=== PATIENT | male | born 1960 | race Caucasian/White ===

== ENCOUNTER 2018-05-17 18:45 | Inpatient (IN) | payer BC ==
[~2018-05-17] VITALS: Ht 167.6 cm; Wt 58.5 kg
[2018-05-17] MEDS ORDERED: SINEMET 25-1001 EAC1 ORAL (18:59)
[2018-05-17 19:10] VITALS: BP 117/67
[2018-05-17] MEDS ORDERED: LORazepam Inj 2mg/ml 1ml IV ONE (19:15)
--- NOTE | 2018-05-17 19:33 | Emergency Room Report ---
History of Present Illness General Chief Complaint: General Complaint Source: Patient Present Illness HPI 58-year-old male, history of some psychiatric disorder, said that he woke up and he believes that someone put formaldehyde in his mouth. He was at home, with a family member. States that his dad 2 weeks ago, they used formaldehyde for his body, he says that he woke up and he smelled formaldehyde on his lips. He says that he does not believe anyone poisoned him, but does not know why it would smelling formaldehyde in his lips. He is currently just complaining of generalized weakness. No chest pain or abdominal pain. Some nausea but no vomiting. No diarrhea. Allergies: Coded Allergies: No Known Allergies (Unverified , 05/17/18) Patient History Past Medical History: see triage record Past Surgical History: none Pertinent Family History: none Reviewed Nursing Documentation: PMH: Agreed; PSxH: Agreed Nursing Documentation-PM Past Medical History: No History, Except For History Of Psychiatric Problem: Yes - anxiety, depression Hx Neurological Problems: Yes Review of Systems All Other Systems: negative except mentioned in HPI Physical Exam Vital Signs Date Time Temp Pulse Resp B/P (MAP) Pulse Ox O2 Delivery O2 Flow Rate FiO2 05/17/18 18:48 98.4 84 16 108/76 100 Room Air 98.4 Sp02 EP Interpretation: reviewed, normal General Appearance: other - Withdrawn middle aged male, very anxious appearing , however he is answering questions appropriately, nontoxic Head: normocephalic, atraumatic Eyes: bilateral eye normal inspection, bilateral eye PERRL, bilateral eye EOMI ENT: normal ENT inspection, normal pharynx, normal voice, moist mucus membranes Neck: normal inspection, full range of motion, supple Respiratory: normal inspection, lungs clear, normal breath sounds, no respiratory distress, no retraction, no wheezing, speaking full sentences, chest symmetrical Cardiovascular #1: normal inspection, regular rate, rhythm, no edema, normal capillary refill Cardiovascular #2: 2+ radial (R), 2+ radial (L) Gastrointestinal: normal inspection, non tender, soft, non-distended, no guarding Genitourinary: no CVA tenderness Musculoskeletal: normal inspection, back normal, normal range of motion, non- tender Neurologic: normal inspection, alert, oriented x3, responsive, motor strength/ tone normal, sensory intact, normal gait, speech normal Psychiatric: normal inspection, judgement/insight normal, memory normal Skin: normal inspection, normal color, no rash, warm/dry, well hydrated, normal turgor Medical Decision Making Diagnostic Impression: Primary Impression: Generalized weakness Additional Impressions: Dehydration Decreased oral intake ER Course 58-year-old male, feeling like he has smoke formaldehyde on his lips, however denies having any formaldehyde or any substance like that in his home. No SI or HI DDX: Possibly anxiety, rule out toxic overdose although there denies any actual history of this Plan: Obtain labs, observation ER course: Patient has remained stable during ED stay. He was very anxious upon arrival, so 2 mg Ativan was given Since then he has been sleeping comfortably Labs on her otherwise unremarkable with the exception of some mild dehydration His mother came, says that he has a history of polina and she read an article where Polina can cause acidosis in the blood, so she gave him baking soda mixed with water this was 24 hours ago labs are showing dehydration Disposition: Patient is to be admitted to Dr Mcclain, med surg Please note that this Emergency Department Report was dictated using [employer] technology software, occasionally this can lead to erroneous entry secondary to interpretation by the dictation equipment Laboratory Tests Test 05/17/18 20:00 05/17/18 20:18 White Blood Count 10.4 K/UL (4.8-10.8) Red Blood Count 3.47 M/UL (4.70-6.10) L Hemoglobin 10.5 G/DL (14.2-18.0) L Hematocrit 31.1 % (42.0-52.0) L Mean Corpuscular Volume 90 FL (80-99) Mean Corpuscular Hemoglobin 30.1 PG (27.0-31.0) Mean Corpuscular Hemoglobin Concent 33.6 G/DL (32.0-36.0) Red Cell Distribution Width 11.5 % (11.6-14.8) L Platelet Count 217 K/UL (150-450) Mean Platelet Volume 5.6 FL (6.5-10.1) L Neutrophils (%) (Auto) 76.1 % (45.0-75.0) H Lymphocytes (%) (Auto) 14.9 % (20.0-45.0) L Monocytes (%) (Auto) 8.2 % (1.0-10.0) Eosinophils (%) (Auto) 0.1 % (0.0-3.0) Basophils (%) (Auto) 0.7 % (0.0-2.0) Sodium Level 141 MMOL/L (136-145) Potassium Level 3.2 MMOL/L (3.5-5.1) L Chloride Level 102 MMOL/L (98-107) Carbon Dioxide Level 35 MMOL/L (21-32) H Anion Gap 4 mmol/L (5-15) L Blood Urea Nitrogen 23 mg/dL (7-18) H Creatinine 0.7 MG/DL (0.55-1.30) Estimate Glomerular Filtration Rate > 60 mL/min (>60) Glucose Level 107 MG/DL (74-106) H Calcium Level 9.0 MG/DL (8.5-10.1) Total Bilirubin 1.3 MG/DL (0.2-1.0) H Direct Bilirubin 0.2 MG/DL (0.0-0.3) Aspartate Amino Transferase (AST) 55 U/L (15-37) H Alanine Aminotransferase (ALT) 11 U/L (12-78) L Alkaline Phosphatase 63 U/L (46-116) Total Creatine Kinase 1130 U/L (26-308) H Total Protein 6.8 G/DL (6.4-8.2) Albumin 3.4 G/DL (3.4-5.0) Globulin 3.4 g/dL Albumin/Globulin Ratio 1.0 (1.0-2.7) Salicylates Level 1.5 ug/mL (2.8-20) L Acetaminophen Level < 2 MCG/ML (10-30) L Serum Alcohol < 3 mg/dL Arterial Blood pH 7.542 (7.350-7.450) Arterial Blood Partial Pressure CO2 36.2 mmHg (35.0-45.0) Arterial Blood Partial Pressure O2 102.9 mmHg (75.0-100.0) H Arterial Blood HCO3 30.4 mmol/L (22.0-26.0) H Arterial Blood Oxygen Saturation 97.4 % (92.0-98.0) Arterial Blood Base Excess 7.5 Bobby Test Positive Last Vital Signs Date Time Temp Pulse Resp B/P (MAP) Pulse Ox O2 Delivery O2 Flow Rate FiO2 05/17/18 19:10 98.4 85 16 117/67 100 Room Air 98.4 Disposition: ADMITTED INPATIENT Condition: Serious Referrals: NOT CHOSEN IPA/,REFERRING (PCP) Nadine Almendarez M.D. May 17, 2018 19:33
[2018-05-17 20:14] VITALS: BP 120/68
[2018-05-17 20:25] LABS: BASOPHILS % (AUTO) 0.7 % (0.0-2.0); EOSINOPHILS % (AUTO) 0.1 % (0.0-3.0); HEMATOCRIT 31.1 % (42.0-52.0); HEMOGLOBIN 10.5 G/DL (14.2-18.0); LYMPHOCYTES % (AUTO) 14.9 % (20.0-45.0); MEAN CORPUSCULAR VOLUME 90 FL (80-99); MONOCYTES % (AUTO) 8.2 % (1.0-10.0); NEUTROPHILS % (AUTO) 76.1 % (45.0-75.0); PLATELET COUNT 217 K/UL (150-450); RED BLOOD COUNT 3.47 M/UL (4.70-6.10); RED CELL DISTRIBUTION WIDTH 11.5 % (11.6-14.8); WHITE BLOOD COUNT 10.4 K/UL (4.8-10.8)
[2018-05-17 20:38] LABS: ANION GAP 4 mmol/L (5-15); BLOOD UREA NITROGEN 23 mg/dL (7-18); CARBON DIOXIDE 35 MMOL/L (21-32); CHLORIDE 102 MMOL/L (98-107); CREATININE 0.7 MG/DL (0.55-1.30); POTASSIUM 3.2 MMOL/L (3.5-5.1); SODIUM 141 MMOL/L (136-145)
[2018-05-17 20:51] LABS: ALANINE AMINOTRANSFERASE 11 U/L (12-78); ALBUMIN 3.4 G/DL (3.4-5.0); ALKALINE PHOSPHATASE 63 U/L (46-116); ASPARTATE AMINO TRANSFERASE 55 U/L (15-37); BILIRUBIN,TOTAL 1.3 MG/DL (0.2-1.0); CREATINE KINASE 1130 U/L (26-308)
[2018-05-17 20:58] LABS: BILIRUBIN,DIRECT 0.2 MG/DL (0.0-0.3)
[2018-05-17 22:45] VITALS: BP 117/71
[2018-05-17] MEDS ORDERED: UNOBMED (23:19)
[2018-05-18] VITALS: BP 96/55
[2018-05-18] MEDS ORDERED: Norco 5mg/325mg tab ORAL PRN (00:15)
[2018-05-18] MEDS: D5 1/2NS w/KCl 20mEq 1,000 ML IV SCH ×2 (00:55→11:05)
[2018-05-18 04:00] VITALS: BP 113/58
[2018-05-18 06:56] LABS: BASOPHILS % (AUTO) 0.7 % (0.0-2.0); EOSINOPHILS % (AUTO) 0.8 % (0.0-3.0); HEMATOCRIT 30.2 % (42.0-52.0); HEMOGLOBIN 10.2 G/DL (14.2-18.0); LYMPHOCYTES % (AUTO) 18.4 % (20.0-45.0); MEAN CORPUSCULAR VOLUME 89 FL (80-99); MONOCYTES % (AUTO) 8.4 % (1.0-10.0); NEUTROPHILS % (AUTO) 71.8 % (45.0-75.0); PLATELET COUNT 186 K/UL (150-450); RED CELL DISTRIBUTION WIDTH 11.5 % (11.6-14.8); WHITE BLOOD COUNT 6.6 K/UL (4.8-10.8)
[2018-05-18 07:00] LABS: APPEARANCE,URINE CLEAR; BILIRUBIN, URINE NEGATIVE (NEGATIVE); COLOR,URINE BROWN; GLUCOSE, URINE (UA) NEGATIVE (NEGATIVE); KETONES,URINE 2+ (NEGATIVE); LEUKOCYTE ESTERASE ,URINE 1+ (NEGATIVE); NITRITE,URINE NEGATIVE (NEGATIVE); PH,URINE 8 (4.5-8.0); PROTEIN,URINE 1+ (NEGATIVE); UROBILINOGEN,URINE NORMAL MG/DL (0.0-1.0)
[2018-05-18 07:38] LABS: ALANINE AMINOTRANSFERASE 23 U/L (12-78); ALBUMIN 2.8 G/DL (3.4-5.0); ALBUMIN/GLOBULIN RATIO 0.9 (1.0-2.7); ALKALINE PHOSPHATASE 56 U/L (46-116); ANION GAP 4 mmol/L (5-15); ASPARTATE AMINO TRANSFERASE 43 U/L (15-37); BILIRUBIN,TOTAL 1.3 MG/DL (0.2-1.0); BLOOD UREA NITROGEN 15 mg/dL (7-18); CALCIUM 8.4 MG/DL (8.5-10.1); CARBON DIOXIDE 32 MMOL/L (21-32); CHLORIDE 106 MMOL/L (98-107); CREATININE 0.7 MG/DL (0.55-1.30); PHOSPHORUS 2.6 MG/DL (2.5-4.9); POTASSIUM 3.2 MMOL/L (3.5-5.1); SODIUM 142 MMOL/L (136-145)
[2018-05-18 07:39] LABS: BILIRUBIN,DIRECT 0.2 MG/DL (0.0-0.3)
[2018-05-18 08:00] VITALS: BP 110/68
[2018-05-18] MEDS: Heparin 5000 units/ml inj SUBQ SCH ×2 (08:07→21:04)
[2018-05-18] MEDS ORDERED: LORazepam 1mg tab ORAL PRN (11:30)
[2018-05-18 12:00] VITALS: BP 111/67
--- NOTE | 2018-05-18 12:38 | Consultation ---
History of Present Illness General Date patient seen: May 18, 2018 Chief Complaint: General Complaint Present Illness HPI 58-year-old male, history of some psychiatric disorder, said that he woke up and he believes that someone put formaldehyde in his mouth. He says that he does not believe anyone poisoned him, but does not know why it would smelling formaldehyde in his lips. He is currently just complaining of generalized weakness. He was mildly dehydrated, and he seemed not be able to take care of himself and need probably placement. Allergies: Coded Allergies: No Known Allergies (Unverified , 05/17/18) Medication History Scheduled Carbidopa/Levodopa 25-100 Mg* (Sinemet 25-100 Mg Tablet*), 1 TAB ORAL THREE TIMES A DAY, (Reported) Miscellaneous Medications Unable to Obtain Medications (Unable To Obtain Meds), (Reported) Patient History Healthcare decision maker Resuscitation status Full Code Advanced Directive on File Past Medical/Surgical History Past Medical/Surgical History: (1) Schizoaffective disorder Review of Systems All Other Systems: negative except mentioned in HPI Physical Exam General Appearance: cachetic Lines, tubes and drains: peripheral Neck: non-tender, normal alignment Respiratory/Chest: chest wall non-tender, normal breath sounds Breasts: no masses Cardiovascular/Chest: normal peripheral pulses Abdomen: normal bowel sounds, hyperactive bowel sounds Extremities: normal range of motion Last 24 Hour Vital Signs Date Time Temp Pulse Resp B/P (MAP) Pulse Ox O2 Delivery O2 Flow Rate FiO2 05/18/18 12:00 97.9 73 18 111/67 (82) 99 97.9 05/18/18 08:00 97.5 79 19 110/68 (82) 98 97.5 05/18/18 08:00 Room Air 05/18/18 04:00 98.9 73 19 113/58 (76) 98 98.9 05/18/18 00:00 98.3 77 19 96/55 (69) 97 98.3 05/17/18 23:22 Room Air 05/17/18 23:11 98.1 82 16 117/71 100 Room Air 98.1 05/17/18 22:45 98.1 82 16 117/71 100 Room Air 98.1 05/17/18 20:14 98.5 80 18 120/68 100 Room Air 98.5 05/17/18 19:10 98.4 85 16 117/67 100 Room Air 98.4 05/17/18 18:48 98.4 84 16 108/76 100 Room Air 98.4 Intake and Output 05/17/18 05/18/18 19:00 07:00 Intake Total 1600 ml Output Total 500 ml Balance 1100 ml Intake IV Total 1600 ml Output Urine Total 500 ml # Voids 1 Laboratory Tests Test 05/17/18 20:00 05/17/18 20:18 05/18/18 05:50 White Blood Count 10.4 K/UL (4.8-10.8) 6.6 K/UL (4.8-10.8) Red Blood Count 3.47 M/UL (4.70-6.10) L 3.40 M/UL (4.70-6.10) L Hemoglobin 10.5 G/DL (14.2-18.0) L 10.2 G/DL (14.2-18.0) L Hematocrit 31.1 % (42.0-52.0) L 30.2 % (42.0-52.0) L Mean Corpuscular Volume 90 FL (80-99) 89 FL (80-99) Mean Corpuscular Hemoglobin 30.1 PG (27.0-31.0) 29.9 PG (27.0-31.0) Mean Corpuscular Hemoglobin Concent 33.6 G/DL (32.0-36.0) 33.7 G/DL (32.0-36.0) Red Cell Distribution Width 11.5 % (11.6-14.8) L 11.5 % (11.6-14.8) L Platelet Count 217 K/UL (150-450) 186 K/UL (150-450) Mean Platelet Volume 5.6 FL (6.5-10.1) L 5.8 FL (6.5-10.1) L Neutrophils (%) (Auto) 76.1 % (45.0-75.0) H 71.8 % (45.0-75.0) Lymphocytes (%) (Auto) 14.9 % (20.0-45.0) L 18.4 % (20.0-45.0) L Monocytes (%) (Auto) 8.2 % (1.0-10.0) 8.4 % (1.0-10.0) Eosinophils (%) (Auto) 0.1 % (0.0-3.0) 0.8 % (0.0-3.0) Basophils (%) (Auto) 0.7 % (0.0-2.0) 0.7 % (0.0-2.0) Sodium Level 141 MMOL/L (136-145) 142 MMOL/L (136-145) Potassium Level 3.2 MMOL/L (3.5-5.1) L 3.2 MMOL/L (3.5-5.1) L Chloride Level 102 MMOL/L (98-107) 106 MMOL/L (98-107) Carbon Dioxide Level 35 MMOL/L (21-32) H 32 MMOL/L (21-32) Anion Gap 4 mmol/L (5-15) L 4 mmol/L (5-15) L Blood Urea Nitrogen 23 mg/dL (7-18) H 15 mg/dL (7-18) Creatinine 0.7 MG/DL (0.55-1.30) 0.7 MG/DL (0.55-1.30) Estimat Glomerular Filtration Rate > 60 mL/min (>60) > 60 mL/min (>60) Glucose Level 107 MG/DL (74-106) H 153 MG/DL (74-106) H Calcium Level 9.0 MG/DL (8.5-10.1) 8.4 MG/DL (8.5-10.1) L Total Bilirubin 1.3 MG/DL (0.2-1.0) H 1.3 MG/DL (0.2-1.0) H Direct Bilirubin 0.2 MG/DL (0.0-0.3) 0.2 MG/DL (0.0-0.3) Aspartate Amino Transf (AST/SGOT) 55 U/L (15-37) H 43 U/L (15-37) H Alanine Aminotransferase (ALT/SGPT) 11 U/L (12-78) L 23 U/L (12-78) Alkaline Phosphatase 63 U/L (46-116) 56 U/L (46-116) Total Creatine Kinase 1130 U/L (26-308) H Total Protein 6.8 G/DL (6.4-8.2) 5.9 G/DL (6.4-8.2) L Albumin 3.4 G/DL (3.4-5.0) 2.8 G/DL (3.4-5.0) L Globulin 3.4 g/dL 3.1 g/dL Albumin/Globulin Ratio 1.0 (1.0-2.7) 0.9 (1.0-2.7) L Salicylates Level 1.5 ug/mL (2.8-20) L Acetaminophen Level < 2 MCG/ML (10-30) L Serum Alcohol < 3 mg/dL Arterial Blood pH 7.542 (7.350-7.450) Arterial Blood Partial Pressure CO2 36.2 mmHg (35.0-45.0) Arterial Blood Partial Pressure O2 102.9 mmHg (75.0-100.0) H Arterial Blood HCO3 30.4 mmol/L (22.0-26.0) H Arterial Blood Oxygen Saturation 97.4 % (92.0-98.0) Arterial Blood Base Excess 7.5 Bobby Test Positive Phosphorus Level 2.6 MG/DL (2.5-4.9) Magnesium Level 2.0 MG/DL (1.8-2.4) Height (Feet): 5 Height (Inches): 6.00 Weight (Pounds): 129 Medications Current Medications Medications (Trade) Dose Ordered Sig/Rakesh Route PRN Reason Start Time Stop Time Status Last Admin Dose Admin Acetaminophen (Tylenol) 650 mg Q6H PRN ORAL Mild Pain/Temp > 100.0 05/18/18 00:15 06/17/18 00:14 Acetaminophen/ Hydrocodone Bitart ([place] 5/325) 1 tab Q6H PRN ORAL MOD-SEV PAIN 4-10 05/18/18 00:15 05/25/18 00:14 Dextrose/ Electrolytes 1,000 ml @ 100 mls/hr Q10H IV 05/18/18 00:15 06/17/18 00:14 05/18/18 11:05 Heparin Sodium (Porcine) (Heparin 5000 units/ml) 5,000 units EVERY 12 HOURS SUBQ 05/18/18 09:00 06/17/18 08:59 05/18/18 08:07 Lorazepam (Ativan) 1 mg Q6H PRN ORAL For Anxiety 05/18/18 11:30 05/25/18 11:29 Ondansetron HCl (Zofran) 4 mg Q4H PRN IVP Nausea & Vomiting 05/18/18 00:15 06/17/18 00:14 Assessment/Plan Problem List: (1) Dehydration ICD Codes: E86.0 - Dehydration SNOMED: 32865469 (2) unable to care for himself (3) Schizoaffective disorder ICD Codes: F25.9 - Schizoaffective disorder, unspecified SNOMED: 91991402 (4) Generalized weakness ICD Codes: R53.1 - Weakness SNOMED: 91214181 Assessment/Plan Iv fluids psych evaluation check electrolytes K supplement pt/ot social service consult Jahaira Chan MD May 18, 2018 12:38
[2018-05-18 16:00] VITALS: BP 121/70
[2018-05-18 20:00] VITALS: BP 113/63
--- NOTE | 2018-05-18 20:04 | History & Physical ---
History and Physical History & Physicial Dictated for Int Med-Dr Mcclain no. [id number]. Mike Shanks MD May 18, 2018 20:04
--- NOTE | 2018-05-18 22:00 | History and Physical Report ---
DATE OF ADMISSION: 05/17/2018 CHIEF COMPLAINT: The patient is a 58-year-old male, who presents with a chief complaint of acute psychosis. HISTORY OF PRESENT ILLNESS: The patient himself is unable to contribute much to the history and physical. The patient is having hallucinations. The patient apparently lives at home with family. The patient states his father 2 weeks ago and they used formaldehyde to preserve his body. The patient states he woke up with formaldehyde on his lips. The patient states that he does not know if of anybody poisoned him or if he just got formaldehyde on his lips. The patient is admitted for acute psychosis. PAST MEDICAL HISTORY: Unknown. PAST SURGICAL HISTORY: Unknown. CURRENT MEDICATIONS: Sinemet 25/100 one tablet p.o. 3 times daily. ALLERGIES: No known drug allergies. SOCIAL HISTORY: The patient lives at home with his family. The patient denies tobacco or alcohol use. REVIEW OF SYSTEMS: Unable to assess secondary to the patient's mental status. PHYSICAL EXAMINATION: VITAL SIGNS: Temperature 98.3, respirations 19, pulse 77, and blood pressure 96/55. GENERAL: The patient is a well-developed and well-nourished male, in no apparent distress. HEENT: Eyes, pupils are equal and responsive to light and accommodation. Extraocular movements are intact. NECK: Supple without lymphadenopathy. CHEST: Lungs are clear to auscultation bilaterally without wheezes or rales. CARDIOVASCULAR: Regular rhythm and rate. S1 and S2 are normal without murmurs, rubs, or gallops. ABDOMEN: Soft, nontender, and nondistended. Positive bowel sounds. No evidence of hepatosplenomegaly. Currently, no rebounding or guarding noted. EXTREMITIES: Negative for clubbing, cyanosis, or edema. RECTAL/GENITAL: Deferred. NEUROLOGIC: Cranial nerves II through XII are grossly intact without focal deficits. Motor strength is 5/5 bilaterally. Deep tendon reflexes are 2+ plantar. LABORATORY STUDIES: WBC 10.4, hemoglobin 10.5, hematocrit 31.1, and platelets 270,000. Sodium 141, potassium 3.2, chloride 102, CO2 35, BUN 23, creatinine 0.7, and glucose 107. Urine toxicology was negative. ASSESSMENT: This is a 58-year-old male. 1. Acute psychosis, not otherwise specified. 2. Parkinson's disease. TREATMENT: 1. Psychosis, not otherwise specified. A Psychiatric consultation has been obtained with Dr. Caldwell. We will follow recommendations of Dr. Caldwell. 2. Parkinson's disease. Continue Sinemet as above this. Mike Shanks M.D. DR: JESSA JOB#: [id number] CC:
[2018-05-19] VITALS: BP 120/72
[2018-05-19 04:00] VITALS: BP 127/75
--- NOTE | 2018-05-19 07:13 | Pulmonology Progress Note ---
Assessment/Plan Assessment/Plan ASSESSMENT Dehydration Schizoaffective disorder Unable to care for himself Anemia Hypokalemia Probably protein calorie malnutrition PLAN OF CARE MS floor IVF Monitor renal parameters, lytes, correct lytes as needed Avoid nephrotoxic PT eval Dietary eval Monitor HH with goal to keep Hgb above 7 Psych eval SS eval case discussed and evaluated by supervising physician Subjective Allergies: Coded Allergies: No Known Allergies (Unverified , 05/17/18) Subjective denies chest pain, SOB reports generalized weakness poor historian Objective Last 24 Hour Vital Signs Date Time Temp Pulse Resp B/P (MAP) Pulse Ox O2 Delivery O2 Flow Rate FiO2 05/19/18 04:00 98.2 80 18 127/75 (92) 99 98.2 05/19/18 00:00 98.2 79 18 120/72 (88) 99 98.2 05/18/18 21:00 Room Air 05/18/18 20:00 97.9 82 113/63 (80) 97.9 05/18/18 16:00 98.0 79 19 121/70 (87) 99 98.0 05/18/18 12:00 97.9 73 18 111/67 (82) 99 97.9 05/18/18 08:00 97.5 79 19 110/68 (82) 98 97.5 05/18/18 08:00 Room Air Intake and Output 05/18/18 05/19/18 19:00 07:00 Intake Total 490 ml Output Total 950 ml Balance -460 ml Intake Oral 490 ml Output Urine Total 950 ml # Voids 2 # Bowel Movements 2 General Appearance: no acute distress HEENT: normocephalic, atraumatic, anicteric, mucous membranes moist Respiratory/Chest: lungs clear, no respiratory distress, no accessory muscle use Cardiovascular: normal rate, regular rhythm, no JVD Abdomen: normal bowel sounds, soft, non tender Genitourinary: normal external genitalia Extremities: no edema, pedal pulses normal Neurologic/Psychiatric: abnormal gait, alert, responsive Musculoskeletal: normal muscle bulk Current Medications Medications (Trade) Dose Ordered Sig/Rakesh Route PRN Reason Start Time Stop Time Status Last Admin Dose Admin Acetaminophen (Tylenol) 650 mg Q6H PRN ORAL Mild Pain/Temp > 100.0 05/18/18 00:15 06/17/18 00:14 Acetaminophen/ Hydrocodone Bitart ([place] 5/325) 1 tab Q6H PRN ORAL MOD-SEV PAIN 4-10 05/18/18 00:15 05/25/18 00:14 Al Hydroxide/Mg Hydroxide (Mylanta) 30 ml Q8HR PRN ORAL Abdominal cramps 05/19/18 02:30 06/18/18 02:29 05/19/18 04:30 Heparin Sodium (Porcine) (Heparin 5000 units/ml) 5,000 units EVERY 12 HOURS SUBQ 05/18/18 09:00 06/17/18 08:59 05/18/18 21:04 Lorazepam (Ativan) 1 mg Q6H PRN ORAL For Anxiety 05/18/18 11:30 05/25/18 11:29 05/18/18 14:10 Ondansetron HCl (Zofran) 4 mg Q4H PRN IVP Nausea & Vomiting 05/18/18 00:15 06/17/18 00:14 Paloma Henry NP May 19, 2018 07:13
[2018-05-19 07:53] LABS: BASOPHILS % (AUTO) 0.8 % (0.0-2.0); EOSINOPHILS % (AUTO) 1.3 % (0.0-3.0); HEMATOCRIT 34.5 % (42.0-52.0); HEMOGLOBIN 11.5 G/DL (14.2-18.0); MEAN CORPUSCULAR VOLUME 88 FL (80-99); MONOCYTES % (AUTO) 11.6 % (1.0-10.0); NEUTROPHILS % (AUTO) 57.2 % (45.0-75.0); PLATELET COUNT 213 K/UL (150-450); RED BLOOD COUNT 3.92 M/UL (4.70-6.10); RED CELL DISTRIBUTION WIDTH 11.3 % (11.6-14.8); WHITE BLOOD COUNT 4.8 K/UL (4.8-10.8)
[2018-05-19 08:00] VITALS: BP 103/67
[2018-05-19 08:25] LABS: ALANINE AMINOTRANSFERASE 14 U/L (12-78); ALBUMIN 3.1 G/DL (3.4-5.0); ALBUMIN/GLOBULIN RATIO 0.9 (1.0-2.7); ALKALINE PHOSPHATASE 59 U/L (46-116); ANION GAP 8 mmol/L (5-15); ASPARTATE AMINO TRANSFERASE 39 U/L (15-37); BILIRUBIN,TOTAL 0.9 MG/DL (0.2-1.0); BLOOD UREA NITROGEN 10 mg/dL (7-18); CALCIUM 8.9 MG/DL (8.5-10.1); CARBON DIOXIDE 29 MMOL/L (21-32); CHLORIDE 104 MMOL/L (98-107); CREATININE 0.6 MG/DL (0.55-1.30); PHOSPHORUS 2.7 MG/DL (2.5-4.9); POTASSIUM 3.6 MMOL/L (3.5-5.1); SODIUM 141 MMOL/L (136-145)
[2018-05-19] MEDS: Heparin 5000 units/ml inj SUBQ SCH (09:02)
[2018-05-19 12:00] VITALS: BP 115/70
[2018-05-19] MEDS ORDERED: QUETIAPINE FUMA50 MG ORAL (20:35)
[2018-05-19] MEDS ORDERED: PANTOPRAZOLE SO40 MG ORAL (20:35)
[2018-05-19] MEDS ORDERED: ENTACAPONE200 MG PO (20:35)
[2018-05-19] MEDS ORDERED: METHOCARBAMOL750 MG ORAL (20:35)
[2018-05-19] MEDS ORDERED: KLONOPIN0.5 MG ORAL (20:35)
[2018-05-19] MEDS ORDERED: DOCUSATE SODIU100 MG ORAL (20:35)
[2018-05-19] MEDS ORDERED: CARVEDILOL6.25 MG ORAL (20:35)
[2018-05-19] MEDS ORDERED: PROAIR HFA8.5 GM INH (20:35)
[2018-05-19] MEDS ORDERED: NORCO 5-325 TA1 EACH ORAL (20:35)
[2018-05-19] MEDS ORDERED: FLUTICASONE PRO16 G1 NASAL (20:35)
[2018-05-19] MEDS ORDERED: FLONASE1 SPRAYS NASAL (20:35)
--- NOTE | 2018-05-19 23:32 | Consultation ---
History of Present Illness General Date patient seen: May 18, 2018 Chief Complaint: General Complaint Present Illness HPI 58-year-old male, who presents with a chief complaint of acute psychosis. the pt has hx of depression and anxiety he was perseverating about his medical condition and was paranoid Allergies: Uncoded Allergies: LEVODOPA, CARBIDOPA (Allergy, Unknown, 05/19/18) Medication History Scheduled Albuterol Sulfate* (Proair Hfa*), 1 PUFF INH THREE TIMES A DAY, (Reported) Carbidopa/Levodopa 25-100 Mg* (Sinemet 25-100 Mg Tablet*), 1 TAB ORAL THREE TIMES A DAY, (Reported) Carvedilol* (Carvedilol*), 6.25 MG ORAL EVERY 12 HOURS, (Reported) Clonazepam* (Klonopin*), 0.5 MG ORAL BID, (Reported) Docusate Sodium* (Docusate Sodium*), 100 MG ORAL TWICE A DAY, (Reported) Entacapone (Entacapone), 200 MG PO DAILY, (Reported) Fluticasone Propionate (Fluticasone Propionate), 1 SPRAY NASAL DAILY, (Reported) Fluticasone Propionate* (Fluticasone Propionate*), 1 SPRAY NASAL DAILY, ( Reported) Pantoprazole* (Pantoprazole*), 40 MG ORAL DAILY, (Reported) Quetiapine Fumarate* (Quetiapine Fumarate*), 50 MG ORAL DAILY, (Reported) Scheduled PRN Hydrocodone Bit/Acetaminophen 5-325* ([place] 5-325*), 1 TAB ORAL Q6H PRN for For Pain, (Reported) Methocarbamol* (Methocarbamol*), 750 MG ORAL THREE TIMES A DAY PRN for For Pain, (Reported) Miscellaneous Medications Unable to Obtain Medications (Unable To Obtain Meds), (Reported) Patient History History Provided By: Patient, Medical Record, PMD Healthcare decision maker Resuscitation status Full Code Advanced Directive on File Review of Systems Psychiatric: Reports: prior hx, anxiety, depressed feelings, emotional problems Physical Exam General Appearance: no apparent distress, alert Last 24 Hour Vital Signs Date Time Temp Pulse Resp B/P (MAP) Pulse Ox O2 Delivery O2 Flow Rate FiO2 05/19/18 12:00 98.2 75 18 115/70 (85) 99 98.2 05/19/18 08:12 Room Air 05/19/18 08:00 99.0 76 18 103/67 (79) 99 99.0 05/19/18 04:00 98.2 80 18 127/75 (92) 99 98.2 05/19/18 00:00 98.2 79 18 120/72 (88) 99 98.2 Intake and Output 05/18/18 05/19/18 19:00 07:00 Intake Total 490 ml Output Total 950 ml Balance -460 ml Intake Oral 490 ml Output Urine Total 950 ml # Voids 2 # Bowel Movements 2 Laboratory Tests Test 05/19/18 07:20 White Blood Count 4.8 K/UL (4.8-10.8) Red Blood Count 3.92 M/UL (4.70-6.10) L Hemoglobin 11.5 G/DL (14.2-18.0) L Hematocrit 34.5 % (42.0-52.0) L Mean Corpuscular Volume 88 FL (80-99) Mean Corpuscular Hemoglobin 29.5 PG (27.0-31.0) Mean Corpuscular Hemoglobin Concent 33.4 G/DL (32.0-36.0) Red Cell Distribution Width 11.3 % (11.6-14.8) L Platelet Count 213 K/UL (150-450) Mean Platelet Volume 5.8 FL (6.5-10.1) L Neutrophils (%) (Auto) 57.2 % (45.0-75.0) Lymphocytes (%) (Auto) 29.0 % (20.0-45.0) Monocytes (%) (Auto) 11.6 % (1.0-10.0) H Eosinophils (%) (Auto) 1.3 % (0.0-3.0) Basophils (%) (Auto) 0.8 % (0.0-2.0) Sodium Level 141 MMOL/L (136-145) Potassium Level 3.6 MMOL/L (3.5-5.1) Chloride Level 104 MMOL/L (98-107) Carbon Dioxide Level 29 MMOL/L (21-32) Anion Gap 8 mmol/L (5-15) Blood Urea Nitrogen 10 mg/dL (7-18) Creatinine 0.6 MG/DL (0.55-1.30) Estimat Glomerular Filtration Rate > 60 mL/min (>60) Glucose Level 100 MG/DL (74-106) Calcium Level 8.9 MG/DL (8.5-10.1) Phosphorus Level 2.7 MG/DL (2.5-4.9) Magnesium Level 2.0 MG/DL (1.8-2.4) Total Bilirubin 0.9 MG/DL (0.2-1.0) Aspartate Amino Transf (AST/SGOT) 39 U/L (15-37) H Alanine Aminotransferase (ALT/SGPT) 14 U/L (12-78) Alkaline Phosphatase 59 U/L (46-116) Total Protein 6.7 G/DL (6.4-8.2) Albumin 3.1 G/DL (3.4-5.0) L Globulin 3.6 g/dL Albumin/Globulin Ratio 0.9 (1.0-2.7) L Height (Feet): 5 Height (Inches): 6.00 Weight (Pounds): 129 Assessment/Plan Assessment/Plan encephalopathy due to [facility] seroquel Ivan Saenz MD May 19, 2018 23:32
[2018-05-20] MEDS ORDERED: METHOCARBAMOL750 M1 PO (19:40)
--- NOTE | 2018-05-22 12:28 | Discharge Summary ---
Discharge Summary Discharge Summary _ DATE OF ADMISSION: 05/16/2018 DATE OF DISCHARGE: 05/19/2018. Patient signed AGAINST MEDICAL ADVICE REASON FOR ADMISSION: 58 years old male with past medical history of hypertension, Parkinson disease, schizoaffective disorder, who lives at home with 80 years old mother, presented to emergency room for evaluation . Patient was acting bizarre , stating that he believes someone placed formaldehyde into his mouth, while he was sleeping.. He smell formaldehyde on his lips upon awakening. He stated , that his father 2 weeks ago, and they use formaldehyde for his body He did not believe that someone wanted to poison him. Patient also complained of generalized weakness. He denied chest pain, shortness of breath, abdominal pain. No diarrhea , no vomiting, some nausea. Vital signs were stable. Laboratory workup revealed no leukocytosis, hemoglobin 10.5, hematocrit 31, potassium 3.2 . ABG was stable on room air. BUN 23 creatinine 0.7. CK 1130 , AST 55 Serum salicylate , , Tylenol and alcohol level were all negative. Patient admitted with diagnoses of dehydration ,generalized weakness ,Parkinson disease, schizoaffective disorder ,unable to care for himself, hypokalemia. CONSULTANTS: pulmonary Dr. Chan psychiatrist [facility] COURSE: Patient admitted to medical surgical floor. Patient started on the IV fluids. Potassium was replaced. Psychiatric evaluation was requested. Patient started to work with physical and occupational therapists. Social service evaluation was requested for home safety evaluation. Sinemet was continued. Renal parameters and electrolytes were closely monitored. Electrolytes corrected as needed, and nephrotoxins were avoided. Dietary evaluation was requested for probable protein calorie malnutrition. Psychiatrist seen and evaluated patient , and diagnosed patient with encephalopathy secondary to general medical condition . Patient was started on Seroquel on as needed basis. DVT prophylaxis provided. Pain management was addressed as needed. Patient decided to sign AGAINST MEDICAL ADVICE. The risks and consequences of signing AGAINST MEDICAL ADVICE were discussed with patient in detail. Patient verbalized understanding, nevertheless signed AMA form and left. FINAL DIAGNOSES: Dehydration Encephalopathy secondary to general medical condition Schizoaffective disorder Parkinson disease Unable to care for himself Probably protein calorie malnutrition Anemia Hypokalemia -resolved Paloma Henry NP May 22, 2018 12:28
--- NOTE | 2018-05-23 16:19 | Cardiology Report ---
APPROVED REPORT EKG Measurement Heart [id number] 132P81 [id number] Normal sinus rhythm Normal ECG
== END 2018-05-19 14:15 | disposition left against medical advice (07) | DRG 640 ==
LOC: EDBD 18:45 → EMR 18:59 → 4E 21:22 → EDBEDREQ 21:43 → 4E 22:50
DX: E86.0 Dehydration (principal); G93.40 Encephalopathy, unspecified; E46 Unspecified protein-calorie malnutrition; F25.9 Schizoaffective disorder, unspecified; G20 Parkinson's disease; D64.9 Anemia, unspecified; E87.6 Hypokalemia; Z88.8 Allergy status to other drugs, medicaments and biological substances
CPT/HCPCS: 36415; 36600; 80053; 80307; 80329; 81003; 82248; 82550; 82803; 82962; 83735; 84100; 85025; 93005; 96361; 96374; 99285

== ENCOUNTER 2018-05-19 18:46 | Inpatient (IN) | payer BC, OTHER ==
[~2018-05-19] VITALS: Ht 177.8 cm; Wt 57.2 kg
[~2018-05-19 18:46] MED LIST: SINEMET 25-1001 EAC1 ORAL; UNOBMED
[2018-05-19 18:47] VITALS: BP 141/80
[2018-05-19] MEDS ORDERED: Sodium Chloride 500ML 500 ML IV ONE (19:02)
[2018-05-19] MEDS ORDERED: LORazepam Inj 2mg/ml 1ml IV ONE (19:15)
--- NOTE | 2018-05-19 19:39 | Emergency Room Report ---
History of Present Illness General Chief Complaint: General Complaint Source: EMS Present Illness HPI 58-year-old male presents ED for evaluation. Patient brought by EMS from home. Patient was having anxiety and call 911. States he is shaking. EMS states that they have responded to this patient multiple times in the past week. History of Parkinson's. Patient was admitted here 2 days ago and left AMA this morning. Upon arrival patient is very anxious. States his sugar is very high. Denies chest pain or shortness of breath. Denies hearing voices. Denies suicidal or homicidal ideation. No other aggravating relieving factors. Denies any other associated symptoms Allergies: Coded Allergies: NO KNOWN ALLERGIES (Verified Allergy, Unknown, 05/19/18) Patient History Past Medical History: psych hx, other - parkinsons Past Surgical History: none Pertinent Family History: none Social History: Denies: smoking, alcohol use, drug use Immunizations: UTD Reviewed Nursing Documentation: PMH: Agreed; PSxH: Agreed Nursing Documentation-PMH Past Medical History: No History, Except For Hx Neurological Problems: Yes Review of Systems All Other Systems: negative except mentioned in HPI Physical Exam Vital Signs Date Time Temp Pulse Resp B/P (MAP) Pulse Ox O2 Delivery O2 Flow Rate FiO2 05/19/18 18:39 99.0 86 20 132/76 97 Room Air 99.0 Sp02 EP Interpretation: reviewed, normal General Appearance: no apparent distress, alert, GCS 15, non-toxic Head: normocephalic, atraumatic Eyes: bilateral eye normal inspection, bilateral eye PERRL ENT: hearing grossly normal, normal pharynx, no angioedema, normal voice Neck: full range of motion, supple/symm/no masses Respiratory: chest non-tender, lungs clear, normal breath sounds, speaking full sentences Cardiovascular #1: regular rate, rhythm, no edema Cardiovascular #2: 2+ carotid (R), 2+ carotid (L), 2+ radial (R), 2+ radial (L) , 2+ dorsalis pedis (R), 2+ dorsalis pedis (L) Gastrointestinal: normal bowel sounds, non tender, soft, non-distended, no guarding, no rebound Rectal: deferred Genitourinary: normal inspection, no CVA tenderness Musculoskeletal: back normal, gait/station normal, normal range of motion, non- tender Neurologic: alert, oriented x3, responsive, motor strength/tone normal, sensory intact, speech normal Psychiatric: no suicidal/homicidal ideation, no delusions, anxious Reflexes: 3+ bicep (R), 3+ bicep (L), 3+ tricep (R), 3+ tricep (L), 3+ knee (R) , 3+ knee (L) Skin: normal color, no rash, warm/dry, well hydrated Lymphatic: no adenopathy Medical Decision Making Diagnostic Impression: Primary Impression: Schizoaffective disorder Qualified Codes: F25.9 - Schizoaffective disorder, unspecified Additional Impression: unable to care for himself ER Course Hospital Course 58-year-old male presenting to ED with anxiety, unable to care for self Differential diagnoses include: UTI, sepsis, dehydration, psychosis, failure to thrive Clinical course Patient placed on stretcher. On gambling monitor. After initial history and physical, I ordered labs, IV fluids, ativan Labs - no leukocytosis, hb/hct stable, electrolytes ok Patient is more calm after Ativan however is unable to provide a accurate story. Patient was admitted here on 05/17. I spoke to the admitting physician who states that patient did leave AMA on 05/19 morning. Called his mother who picked him up. I spoke to the mother over the phone. She did not want to take the patient home but he insisted. She states that she does not believe patient can be safely discharged to home. She agrees to admission patient will be admitted to Dr Mcclain I feel this is a highly complex case requiring extensive working including EKG/ Rhythm strip, Xray/CT/US, Blood/urine lab work, repeat exams while in ED, and administration of strong opiates/narcotics for pain control, admission to hospital or close patient follow up. Diagnosis - schizoaffective disorder, unable to care for self Patient admitted to floor in serious condition Labs Test 05/19/18 19:22 05/20/18 05:20 White Blood Count 8.3 K/UL (4.8-10.8) 6.7 K/UL (4.8-10.8) Red Blood Count 3.82 M/UL (4.70-6.10) 3.85 M/UL (4.70-6.10) Hemoglobin 11.2 G/DL (14.2-18.0) 11.3 G/DL (14.2-18.0) Hematocrit 33.4 % (42.0-52.0) 33.8 % (42.0-52.0) Mean Corpuscular Volume 87 FL (80-99) 88 FL (80-99) Mean Corpuscular Hemoglobin 29.4 PG (27.0-31.0) 29.4 PG (27.0-31.0) Mean Corpuscular Hemoglobin Concent 33.7 G/DL (32.0-36.0) 33.5 G/DL (32.0-36.0) Red Cell Distribution Width 11.3 % (11.6-14.8) 11.3 % (11.6-14.8) Platelet Count 258 K/UL (150-450) 239 K/UL (150-450) Mean Platelet Volume 5.5 FL (6.5-10.1) 5.8 FL (6.5-10.1) Neutrophils (%) (Auto) 71.5 % (45.0-75.0) 64.9 % (45.0-75.0) Lymphocytes (%) (Auto) 16.1 % (20.0-45.0) 21.1 % (20.0-45.0) Monocytes (%) (Auto) 10.7 % (1.0-10.0) 12.2 % (1.0-10.0) Eosinophils (%) (Auto) 0.6 % (0.0-3.0) 1.2 % (0.0-3.0) Basophils (%) (Auto) 1.0 % (0.0-2.0) 0.6 % (0.0-2.0) Sodium Level 138 MMOL/L (136-145) 139 MMOL/L (136-145) Potassium Level 3.8 MMOL/L (3.5-5.1) 3.8 MMOL/L (3.5-5.1) Chloride Level 103 MMOL/L (98-107) 104 MMOL/L (98-107) Carbon Dioxide Level 29 MMOL/L (21-32) 26 MMOL/L (21-32) Anion Gap 6 mmol/L (5-15) 9 mmol/L (5-15) Blood Urea Nitrogen 14 mg/dL (7-18) 17 mg/dL (7-18) Creatinine 0.7 MG/DL (0.55-1.30) 0.6 MG/DL (0.55-1.30) Estimat Glomerular Filtration Rate > 60 mL/min (>60) > 60 mL/min (>60) Glucose Level 166 MG/DL (74-106) 112 MG/DL (74-106) Calcium Level 9.0 MG/DL (8.5-10.1) 9.2 MG/DL (8.5-10.1) Total Bilirubin 0.5 MG/DL (0.2-1.0) 0.5 MG/DL (0.2-1.0) Aspartate Amino Transf (AST/SGOT) 33 U/L (15-37) 28 U/L (15-37) Alanine Aminotransferase (ALT/SGPT) 21 U/L (12-78) 42 U/L (12-78) Alkaline Phosphatase 63 U/L (46-116) 62 U/L (46-116) Total Protein 6.9 G/DL (6.4-8.2) 7.1 G/DL (6.4-8.2) Albumin 3.2 G/DL (3.4-5.0) 3.3 G/DL (3.4-5.0) Globulin 3.7 g/dL 3.8 g/dL Albumin/Globulin Ratio 0.9 (1.0-2.7) 0.9 (1.0-2.7) Salicylates Level 2.4 ug/mL (2.8-20) Urine Opiates Screen Negative (NEGATIVE) Acetaminophen Level < 2 MCG/ML (10-30) Urine Barbiturates Screen Negative (NEGATIVE) Phencyclidine (PCP) Screen Negative (NEGATIVE) Urine Amphetamines Screen Negative (NEGATIVE) Urine Benzodiazepines Screen Negative (NEGATIVE) Urine Cocaine Screen Negative (NEGATIVE) Urine Marijuana (THC) Screen Negative (NEGATIVE) Serum Alcohol < 3 mg/dL Triglycerides Level 41 MG/DL (30-150) Cholesterol Level 109 MG/DL (< 200) LDL Cholesterol 65 mg/dL (<100) HDL Cholesterol 41 MG/DL (40-60) Cholesterol/HDL Ratio 2.7 (3.3-4.4) Thyroid Stimulating Hormone (TSH) 1.066 uiU/mL (0.358-3.740) Last Vital Signs Date Time Temp Pulse Resp B/P (MAP) Pulse Ox O2 Delivery O2 Flow Rate FiO2 05/19/18 18:47 99.4 87 28 141/80 99 Room Air 99.4 Status: improved Disposition: ADMITTED INPATIENT Condition: Serious Referrals: Jeovany Mcclain MD (PCP) Adalberto Melendez MD May 19, 2018 19:39
[2018-05-19 19:44] LABS: EOSINOPHILS % (AUTO) 0.6 % (0.0-3.0); HEMATOCRIT 33.4 % (42.0-52.0); HEMOGLOBIN 11.2 G/DL (14.2-18.0); LYMPHOCYTES % (AUTO) 16.1 % (20.0-45.0); MEAN CORPUSCULAR VOLUME 87 FL (80-99); MONOCYTES % (AUTO) 10.7 % (1.0-10.0); NEUTROPHILS % (AUTO) 71.5 % (45.0-75.0); PLATELET COUNT 258 K/UL (150-450); RED BLOOD COUNT 3.82 M/UL (4.70-6.10); RED CELL DISTRIBUTION WIDTH 11.3 % (11.6-14.8); WHITE BLOOD COUNT 8.3 K/UL (4.8-10.8)
[2018-05-19 19:55] LABS: ANION GAP 6 mmol/L (5-15); BLOOD UREA NITROGEN 14 mg/dL (7-18); CARBON DIOXIDE 29 MMOL/L (21-32); CHLORIDE 103 MMOL/L (98-107); CREATININE 0.7 MG/DL (0.55-1.30); POTASSIUM 3.8 MMOL/L (3.5-5.1); SODIUM 138 MMOL/L (136-145)
[2018-05-19 20:00] LABS: ALANINE AMINOTRANSFERASE 21 U/L (12-78); ALBUMIN 3.2 G/DL (3.4-5.0); ALBUMIN/GLOBULIN RATIO 0.9 (1.0-2.7); ALKALINE PHOSPHATASE 63 U/L (46-116); ASPARTATE AMINO TRANSFERASE 33 U/L (15-37); BILIRUBIN,TOTAL 0.5 MG/DL (0.2-1.0)
[2018-05-19] MEDS ORDERED: PANTOPRAZOLE SO40 MG ORAL (20:35)
[2018-05-19] MEDS ORDERED: FLONASE1 SPRAYS NASAL (20:35)
[2018-05-19] MEDS ORDERED: ENTACAPONE200 MG PO (20:35)
[2018-05-19] MEDS ORDERED: NORCO 5-325 TA1 EACH ORAL (20:35)
[2018-05-19] MEDS ORDERED: DOCUSATE SODIU100 MG ORAL (20:35)
[2018-05-19] MEDS ORDERED: METHOCARBAMOL750 MG ORAL (20:35)
[2018-05-19] MEDS ORDERED: KLONOPIN0.5 MG ORAL (20:35)
[2018-05-19] MEDS ORDERED: FLUTICASONE PRO16 G1 NASAL (20:35)
[2018-05-19] MEDS ORDERED: PROAIR HFA8.5 GM INH (20:35)
[2018-05-19] MEDS ORDERED: CARVEDILOL6.25 MG ORAL (20:35)
[2018-05-19] MEDS ORDERED: QUETIAPINE FUMA50 MG ORAL (20:35)
[2018-05-19 21:03] VITALS: BP 102/63
[2018-05-19] MEDS ORDERED: Zolpidem 5mg tab ORAL PRN (21:45)
[2018-05-19] MEDS ORDERED: Miralax 17gm pkt ORAL PRN (21:45)
[2018-05-19] MEDS ORDERED: Morphine Sulfate 2mg/ml Inj IVP PRN (21:45)
[2018-05-20] VITALS (7 sets, daily range): BP systolic 102–131; BP diastolic 60–85
[2018-05-20] MEDS: LORazepam Inj 2mg/ml 1ml IV PRN ×2 (01:43→08:40)
[2018-05-20 07:36] LABS: BASOPHILS % (AUTO) 0.6 % (0.0-2.0); EOSINOPHILS % (AUTO) 1.2 % (0.0-3.0); HEMATOCRIT 33.8 % (42.0-52.0); HEMOGLOBIN 11.3 G/DL (14.2-18.0); LYMPHOCYTES % (AUTO) 21.1 % (20.0-45.0); MEAN CORPUSCULAR VOLUME 88 FL (80-99); MONOCYTES % (AUTO) 12.2 % (1.0-10.0); NEUTROPHILS % (AUTO) 64.9 % (45.0-75.0); PLATELET COUNT 239 K/UL (150-450); RED BLOOD COUNT 3.85 M/UL (4.70-6.10); RED CELL DISTRIBUTION WIDTH 11.3 % (11.6-14.8); WHITE BLOOD COUNT 6.7 K/UL (4.8-10.8)
[2018-05-20 08:12] LABS: ALANINE AMINOTRANSFERASE 42 U/L (12-78); ALBUMIN 3.3 G/DL (3.4-5.0); ALBUMIN/GLOBULIN RATIO 0.9 (1.0-2.7); ALKALINE PHOSPHATASE 62 U/L (46-116); ANION GAP 9 mmol/L (5-15); ASPARTATE AMINO TRANSFERASE 28 U/L (15-37); BILIRUBIN,TOTAL 0.5 MG/DL (0.2-1.0); BLOOD UREA NITROGEN 17 mg/dL (7-18); CALCIUM 9.2 MG/DL (8.5-10.1); CARBON DIOXIDE 26 MMOL/L (21-32); CHLORIDE 104 MMOL/L (98-107); CHOLESTEROL 109 MG/DL (< 200); CREATININE 0.6 MG/DL (0.55-1.30); HDL CHOLESTEROL 41 MG/DL (40-60); POTASSIUM 3.8 MMOL/L (3.5-5.1); SODIUM 139 MMOL/L (136-145); TRIGLYCERIDES 41 MG/DL (30-150)
[2018-05-20] MEDS: clonazePAM 0.5mg tab ORAL SCH ×3 (09:00→17:51)
[2018-05-20] MEDS: Levodopa/Carbidopa 25/100 tab ORAL SCH ×2 (10:07→13:00)
[2018-05-20] MEDS: Entacapone 200mg tab ORAL SCH (10:07)
[2018-05-20] MEDS: Carvedilol 6.25mg Tab ORAL SCH ×2 (10:08→20:46)
--- NOTE | 2018-05-20 12:17 | Consultation ---
History of Present Illness General Date patient seen: May 20, 2018 Time patient seen: 10:00 Chief Complaint: General Complaint Referring physician: dr Mcclain Reason for Consultation: inpatient management Present Illness HPI 58-year-old male with PMH of Parkinson disease, HTN, schizoaffective disorder, presented ED for evaluation. Patient brought by EMS from home. Patient had anxiety, was shaking and called 911. Patient was admitted to [facility] [address] 2 days ago and left AMA t 05/19 in am Upon arrival patient was very anxious. He denied hearing voices, he denied SI/HI . Upon evaluation VS were stable urine toxicology screen was negative labs work unremarkable except[t elevated glucose 166 , low albumin and mild anemia patient was admitted with Parkinson disease, schizoaffective disorder, unable to care for himself. Allergies: Coded Allergies: NO KNOWN ALLERGIES (Verified Allergy, Unknown, 05/19/18) Medication History Scheduled Albuterol Sulfate* (Proair Hfa*), 1 PUFF INH THREE TIMES A DAY, (Reported) Carbidopa/Levodopa 25-100 Mg* (Sinemet 25-100 Mg Tablet*), 1 TAB ORAL THREE TIMES A DAY, (Reported) Carvedilol* (Carvedilol*), 6.25 MG ORAL EVERY 12 HOURS, (Reported) Clonazepam* (Klonopin*), 0.5 MG ORAL BID, (Reported) Docusate Sodium* (Docusate Sodium*), 100 MG ORAL TWICE A DAY, (Reported) Entacapone (Entacapone), 200 MG PO DAILY, (Reported) Fluticasone Propionate (Fluticasone Propionate), 1 SPRAY NASAL DAILY, (Reported) Fluticasone Propionate* (Fluticasone Propionate*), 1 SPRAY NASAL DAILY, ( Reported) Pantoprazole* (Pantoprazole*), 40 MG ORAL DAILY, (Reported) Quetiapine Fumarate* (Quetiapine Fumarate*), 50 MG ORAL DAILY, (Reported) Scheduled PRN Hydrocodone Bit/Acetaminophen 5-325* ([place] 5-325*), 1 TAB ORAL Q6H PRN for For Pain, (Reported) Methocarbamol* (Methocarbamol*), 750 MG ORAL THREE TIMES A DAY PRN for For Pain, (Reported) Miscellaneous Medications Unable to Obtain Medications (Unable To Obtain Meds), (Reported) Patient History Healthcare decision maker Resuscitation status Full Code Advanced Directive on File No Review of Systems Constitutional: Reports: weakness Eye: Reports: no symptoms ENT: Reports: no symptoms Respiratory: Reports: no symptoms Cardiovascular: Reports: no symptoms Gastrointestinal: Reports: no symptoms Genitourinary: Reports: no symptoms Musculoskeletal: Reports: muscle stiffness Psychiatric: Reports: see HPI Neurological: Reports: see HPI Endocrine: Reports: see HPI Hematologic/Lymphatic: Reports: anemia Physical Exam General Appearance: alert, other - awake, alert, responsive, dysarthria Lines, tubes and drains: peripheral HEENT: normocephalic, atraumatic, anicteric, mucous membranes moist, PERRL Neck: non-tender, normal alignment Respiratory/Chest: chest wall non-tender, lungs clear, no respiratory distress , no accessory muscle use Cardiovascular/Chest: normal rate, regular rhythm, no JVD Abdomen: normal bowel sounds, non tender, soft Extremities: non-tender, no calf tenderness, normal capillary refill, other - fine tremors socorro hands Skin Exam: warm/dry Neurologic: abnormal gait, alert, responsive, other - stiffness Last 24 Hour Vital Signs Date Time Temp Pulse Resp B/P (MAP) Pulse Ox O2 Delivery O2 Flow Rate FiO2 05/20/18 12:00 98.1 66 20 108/67 (81) 97 98.1 05/20/18 10:08 79 131/85 05/20/18 09:00 Room Air 05/20/18 08:00 99.3 79 21 131/85 (100) 97 99.3 05/20/18 04:00 98.6 78 20 118/69 (85) 98 98.6 05/20/18 00:00 99.3 92 19 109/60 (76) 98 99.3 05/19/18 22:16 Room Air 05/19/18 21:46 13 102/63 100 Room Air 05/19/18 21:03 75 13 102/63 100 Room Air 05/19/18 18:47 99.4 87 28 141/80 99 Room Air 99.4 05/19/18 18:39 99.0 86 20 132/76 97 Room Air 99.0 Intake and Output 05/19/18 05/20/18 19:00 07:00 Intake Total 500 ml Balance 500 ml Intake IV Total 500 ml # Voids 4 # Bowel Movements 2 Laboratory Tests Test 05/19/18 19:22 05/20/18 05:20 White Blood Count 8.3 K/UL (4.8-10.8) # 6.7 K/UL (4.8-10.8) Red Blood Count 3.82 M/UL (4.70-6.10) L 3.85 M/UL (4.70-6.10) L Hemoglobin 11.2 G/DL (14.2-18.0) L 11.3 G/DL (14.2-18.0) L Hematocrit 33.4 % (42.0-52.0) L 33.8 % (42.0-52.0) L Mean Corpuscular Volume 87 FL (80-99) 88 FL (80-99) Mean Corpuscular Hemoglobin 29.4 PG (27.0-31.0) 29.4 PG (27.0-31.0) Mean Corpuscular Hemoglobin Concent 33.7 G/DL (32.0-36.0) 33.5 G/DL (32.0-36.0) Red Cell Distribution Width 11.3 % (11.6-14.8) L 11.3 % (11.6-14.8) L Platelet Count 258 K/UL (150-450) 239 K/UL (150-450) Mean Platelet Volume 5.5 FL (6.5-10.1) L 5.8 FL (6.5-10.1) L Neutrophils (%) (Auto) 71.5 % (45.0-75.0) 64.9 % (45.0-75.0) Lymphocytes (%) (Auto) 16.1 % (20.0-45.0) L 21.1 % (20.0-45.0) Monocytes (%) (Auto) 10.7 % (1.0-10.0) H 12.2 % (1.0-10.0) H Eosinophils (%) (Auto) 0.6 % (0.0-3.0) 1.2 % (0.0-3.0) Basophils (%) (Auto) 1.0 % (0.0-2.0) 0.6 % (0.0-2.0) Sodium Level 138 MMOL/L (136-145) 139 MMOL/L (136-145) Potassium Level 3.8 MMOL/L (3.5-5.1) 3.8 MMOL/L (3.5-5.1) Chloride Level 103 MMOL/L (98-107) 104 MMOL/L (98-107) Carbon Dioxide Level 29 MMOL/L (21-32) 26 MMOL/L (21-32) Anion Gap 6 mmol/L (5-15) 9 mmol/L (5-15) Blood Urea Nitrogen 14 mg/dL (7-18) 17 mg/dL (7-18) Creatinine 0.7 MG/DL (0.55-1.30) 0.6 MG/DL (0.55-1.30) Estimat Glomerular Filtration Rate > 60 mL/min (>60) > 60 mL/min (>60) Glucose Level 166 MG/DL (74-106) H 112 MG/DL (74-106) H Calcium Level 9.0 MG/DL (8.5-10.1) 9.2 MG/DL (8.5-10.1) Total Bilirubin 0.5 MG/DL (0.2-1.0) 0.5 MG/DL (0.2-1.0) Aspartate Amino Transf (AST/SGOT) 33 U/L (15-37) 28 U/L (15-37) Alanine Aminotransferase (ALT/SGPT) 21 U/L (12-78) 42 U/L (12-78) Alkaline Phosphatase 63 U/L (46-116) 62 U/L (46-116) Total Protein 6.9 G/DL (6.4-8.2) 7.1 G/DL (6.4-8.2) Albumin 3.2 G/DL (3.4-5.0) L 3.3 G/DL (3.4-5.0) L Globulin 3.7 g/dL 3.8 g/dL Albumin/Globulin Ratio 0.9 (1.0-2.7) L 0.9 (1.0-2.7) L Salicylates Level 2.4 ug/mL (2.8-20) L Urine Opiates Screen Negative (NEGATIVE) Acetaminophen Level < 2 MCG/ML (10-30) L Urine Barbiturates Screen Negative (NEGATIVE) Phencyclidine (PCP) Screen Negative (NEGATIVE) Urine Amphetamines Screen Negative (NEGATIVE) Urine Benzodiazepines Screen Negative (NEGATIVE) Urine Cocaine Screen Negative (NEGATIVE) Urine Marijuana (THC) Screen Negative (NEGATIVE) Serum Alcohol < 3 mg/dL Triglycerides Level 41 MG/DL (30-150) Cholesterol Level 109 MG/DL (< 200) LDL Cholesterol 65 mg/dL (<100) HDL Cholesterol 41 MG/DL (40-60) Cholesterol/HDL Ratio 2.7 (3.3-4.4) L Thyroid Stimulating Hormone (TSH) 1.066 uiU/mL (0.358-3.740) Height (Feet): 5 Height (Inches): 10.00 Weight (Pounds): 165 Medications Current Medications Medications (Trade) Dose Ordered Sig/Rakesh Route PRN Reason Start Time Stop Time Status Last Admin Dose Admin Acetaminophen (Tylenol) 650 mg Q4H PRN ORAL fever 05/19/18 21:45 06/18/18 21:44 Al Hydroxide/Mg Hydroxide (Mylanta II) 30 ml Q6H PRN ORAL dyspepsia 05/19/18 21:45 06/18/18 21:44 Carbidopa/Levodopa (Sinemet 25/100) 1 tab THREE TIMES A DAY ORAL 05/20/18 09:00 06/19/18 08:59 05/20/18 10:07 Carvedilol (Coreg) 6.25 mg EVERY 12 HOURS ORAL 05/20/18 09:00 06/19/18 08:59 05/20/18 10:08 Clonazepam (KlonoPIN) 0.5 mg BID ORAL 05/20/18 09:00 05/27/18 08:59 Dextrose (Dextrose 50%) 25 ml STAT PRN IV Hypoglycemia 05/19/18 21:45 06/18/18 21:44 Dextrose (Dextrose 50%) 50 ml STAT PRN IV Hypoglycemia 05/19/18 21:45 06/18/18 21:44 Entacapone (Comtan) 200 mg DAILY ORAL 05/20/18 09:00 06/19/18 08:59 05/20/18 10:07 Lorazepam (Ativan 2mg/ml 1ml) 0.5 mg Q4H PRN IV For Anxiety 05/19/18 21:45 05/26/18 21:44 05/20/18 08:40 Morphine Sulfate (Morphine Sulfate) 1 mg Q4H PRN IVP For Pain 05/19/18 21:45 05/26/18 21:44 Ondansetron HCl (Zofran) 4 mg Q6H PRN IVP Nausea & Vomiting 05/19/18 21:45 06/18/18 21:44 Pantoprazole (Protonix) 40 mg DAILY ORAL 05/20/18 09:00 06/19/18 08:59 05/20/18 10:07 Polyethylene Glycol (Miralax) 17 gm HSPRN PRN ORAL Constipation 05/19/18 21:45 06/18/18 21:44 Quetiapine Fumarate (SEROquel) 50 mg DAILY ORAL 05/20/18 09:00 06/19/18 08:59 05/20/18 10:07 Zolpidem Tartrate (Ambien) 5 mg HSPRN PRN ORAL Insomnia 05/19/18 21:45 05/26/18 21:44 Assessment/Plan Assessment/Plan ASSESSMENT Schizoaffective disorder Parkinson disease Unable to care for himself Anemia Hypertension Probably protein calorie malnutrition Encephalopathy 2 to general medical condition Hyperglycemia, r/o DM PLAN OF CARE MS floor gentle IVF hydration monitor renal parameters, lytes, correct lytes as needed, avoid nephrotoxic resume anti-Parkinson meds neuro eval BP management with BB PT /OT eval, fall precautions check HgA1c Dietary eval Monitor HH with goal to keep Hgb above 7 Psych eval done on previous admission, follow with further recommendations SS eval for home safety Venous Duplex BLE DVT /GI prophylaxis monitor HH with goal to keep Hgb above 7 case discussed and evaluated by supervising physician Paloma Henry NP May 20, 2018 12:17
[2018-05-20] MEDS ORDERED: D5 1/2NS 1,000 ML IV SCH (12:30)
--- NOTE | 2018-05-20 16:28 | History & Physical ---
History and Physical History & Physicial Dictated for Int Med-Dr Mcclain no. [id number]. Mike Shanks MD May 20, 2018 16:28
[2018-05-20] MEDS: Levodopa/Carbidopa 10/100 tab ORAL SCH ×2 (17:51→20:46)
[2018-05-20] MEDS ORDERED: METHOCARBAMOL750 M1 PO (19:40)
--- NOTE | 2018-05-20 19:45 | History and Physical Report ---
DATE OF ADMISSION: 05/19/2018 CHIEF COMPLAINT: The patient is a 58-year-old white male who presents with chief complaint of panic attack. HISTORY OF PRESENT ILLNESS: The patient was apparently admitted to [facility] couple of days ago. The patient left against medical advice. The patient became extremely anxious on 05/19/2018. The patient called EMS. The patient was transferred to [facility]. The patient is admitted for acute panic attack. PAST MEDICAL HISTORY: Parkinson disease. PAST SURGICAL HISTORY: The patient denies. CURRENT MEDICATIONS: Sinemet 25/100 mg one tablet p.o. 3 times daily. ALLERGIES: No known drug allergies. SOCIAL HISTORY: The patient lives at home. The patient denies tobacco or alcohol use. REVIEW OF SYSTEMS: Unable to assess secondary to the patient's mental status. PHYSICAL EXAMINATION: GENERAL: The patient is a thin appearing, disheveled white male, in no apparent distress. VITAL SIGNS: Temperature 99.3 degrees, respirations 19, pulse 93, and blood pressure 109/60. HEENT: Eyes, pupils equal and responsive to light and accommodation. Extraocular movements are intact. NECK: Supple without lymphadenopathy. CHEST: Lungs are clear to auscultation bilaterally without wheezes or rales. CARDIOVASCULAR: Regular rhythm and rate. S1 and S2 normal without murmurs, rubs, or gallops. ABDOMEN: Soft, nontender, and nondistended with positive bowel sounds. No evidence of hepatosplenomegaly. Currently, no rebound or guarding noted. EXTREMITIES: Negative for clubbing, cyanosis, or edema. RECTAL: Refused. GENITAL: Refused. NEUROLOGIC: Cranial nerves II through XII are grossly intact without focal deficits. Motor strength is 5/5 bilaterally. Deep tendon reflexes are 2+ plantar. LABORATORY AND DIAGNOSTIC DATA: WBC 8.3, hemoglobin 11.2, hematocrit 33.4 and platelets 258,000. Sodium 138, potassium 3.8, chloride 103, CO2 29, BUN 14, creatinine 0.7 and glucose 166. ASSESSMENT: This is a 58-year-old white male 1. Panic disorder. 2. Parkinson disease. TREATMENT: 1. Panic disorder. The patient has been started empirically on Klonopin. A Psychiatric consultation has been obtained with Dr. Caldwell. We will follow recommendation of Dr. Caldwell. 2. Parkinson disease. Continue Sinemet as above. Mike Shanks M.D. DR: MELODY JOB#: [id number] CC:
[2018-05-20] MEDS: Heparin 5000 units/ml inj SUBQ SCH (20:50)
[2018-05-21] VITALS (8 sets, daily range): BP systolic 97–154; BP diastolic 57–72
[2018-05-21] MEDS: Methocarbamol 750mg tab ORAL PRN ×2 (02:30→09:04)
[2018-05-21] MEDS: LORazepam Inj 2mg/ml 1ml IV PRN ×4 (02:47→22:29)
[2018-05-21] MEDS: Levodopa/Carbidopa 10/100 tab ORAL SCH ×5 (06:51→20:17)
--- NOTE | 2018-05-21 08:01 | Pulmonology Progress Note ---
Assessment/Plan Assessment/Plan ASSESSMENT Schizoaffective disorder Parkinson disease Unable to care for himself Anemia Hypertension Probably protein calorie malnutrition Encephalopathy 2 to general medical condition Hyperglycemia, r/o DM PLAN OF CARE MS floor gentle IVF hydration monitor renal parameters, lytes, correct lytes as needed, avoid nephrotoxic resume anti-Parkinson meds neuro eval- patient follows with outpt neuro at [facility] BP management with BB PT /OT eval, fall precautions check HgA1c in am Dietary eval Monitor HH with goal to keep Hgb above 7 Psych eval done on previous admission, follow with further recommendations SS eval for home safety Venous Duplex BLE DVT /GI prophylaxis monitor HH with goal to keep Hgb above 7 case discussed and evaluated by supervising physician Subjective Allergies: Coded Allergies: NO KNOWN ALLERGIES (Verified Allergy, Unknown, 05/19/18) Subjective labs stable no CP no SOB, more responsive , awake, alert Objective Last 24 Hour Vital Signs Date Time Temp Pulse Resp B/P (MAP) Pulse Ox O2 Delivery O2 Flow Rate FiO2 05/21/18 04:00 97.3 83 18 124/72 (89) 99 97.3 05/20/18 23:45 97.9 84 20 102/62 (75) 99 97.9 05/20/18 21:00 Room Air 05/20/18 20:46 90 112/62 05/20/18 20:00 98.4 90 19 112/62 (79) 98 98.4 05/20/18 16:00 98.2 60 20 111/77 (88) 97 98.2 05/20/18 12:00 98.1 66 20 108/67 (81) 97 98.1 05/20/18 10:08 79 131/85 05/20/18 09:00 Room Air 05/20/18 08:00 99.3 79 21 131/85 (100) 97 99.3 Intake and Output 05/20/18 05/21/18 19:00 07:00 Intake Total 480 ml 320 ml Balance 480 ml 320 ml Intake Oral 480 ml 320 ml # Voids 3 3 Objective General Appearance: alert, awake, alert, responsive, dysarthric Lines, tubes and drains: peripheral HEENT: normocephalic, atraumatic, anicteric, mucous membranes moist, PERRL Neck: non-tender, normal alignment Respiratory/Chest: chest wall non-tender, lungs clear, no respiratory distress , no accessory muscle use Cardiovascular/Chest: normal rate, regular rhythm, no JVD Abdomen: normal bowel sounds, non tender, soft Extremities: non-tender, no calf tenderness, normal capillary refill, other - fine tremors socorro hands Skin Exam: warm/dry Neurologic: abnormal gait, alert, responsive, other - stiffness Current Medications Medications (Trade) Dose Ordered Sig/Rakesh Route PRN Reason Start Time Stop Time Status Last Admin Dose Admin Acetaminophen (Tylenol) 650 mg Q4H PRN ORAL fever 05/19/18 21:45 06/18/18 21:44 Al Hydroxide/Mg Hydroxide (Mylanta II) 30 ml Q6H PRN ORAL dyspepsia 05/19/18 21:45 06/18/18 21:44 Carbidopa/Levodopa (Sinemet ) 1 tab FIVE TIMES A DAY ORAL 05/20/18 16:00 06/19/18 15:59 05/21/18 06:51 Carvedilol (Coreg) 6.25 mg EVERY 12 HOURS ORAL 05/20/18 09:00 06/19/18 08:59 05/20/18 20:46 Clonazepam (KlonoPIN) 0.5 mg BID ORAL 05/20/18 09:00 05/27/18 08:59 05/20/18 17:51 Dextrose (Dextrose 50%) 25 ml STAT PRN IV Hypoglycemia 05/19/18 21:45 06/18/18 21:44 Dextrose (Dextrose 50%) 50 ml STAT PRN IV Hypoglycemia 05/19/18 21:45 06/18/18 21:44 Entacapone (Comtan) 200 mg DAILY ORAL 05/20/18 09:00 06/19/18 08:59 05/20/18 10:07 Heparin Sodium (Porcine) (Heparin 5000 units/ml) 5,000 units EVERY 12 HOURS SUBQ 05/20/18 21:00 06/19/18 20:59 05/20/18 20:50 Lorazepam (Ativan 2mg/ml 1ml) 0.5 mg Q4H PRN IV For Anxiety 05/19/18 21:45 05/26/18 21:44 05/21/18 02:47 Methocarbamol (Robaxin) 750 mg TID PRN ORAL Muscle Spasm 05/20/18 23:45 06/19/18 23:44 05/21/18 02:30 Morphine Sulfate (Morphine Sulfate) 1 mg Q4H PRN IVP For Pain 05/19/18 21:45 05/26/18 21:44 Ondansetron HCl (Zofran) 4 mg Q6H PRN IVP Nausea & Vomiting 05/19/18 21:45 06/18/18 21:44 Pantoprazole (Protonix) 40 mg DAILY ORAL 05/20/18 09:00 06/19/18 08:59 05/20/18 10:07 Polyethylene Glycol (Miralax) 17 gm HSPRN PRN ORAL Constipation 05/19/18 21:45 06/18/18 21:44 Quetiapine Fumarate (SEROquel) 50 mg DAILY ORAL 05/20/18 09:00 06/19/18 08:59 05/20/18 10:07 Zolpidem Tartrate (Ambien) 5 mg HSPRN PRN ORAL Insomnia 05/19/18 21:45 05/26/18 21:44 05/21/18 02:31 Paloma Henry NP May 21, 2018 08:01
[2018-05-21 08:37] LABS: BASOPHILS % (AUTO) 0.8 % (0.0-2.0); EOSINOPHILS % (AUTO) 2.7 % (0.0-3.0); HEMATOCRIT 37.5 % (42.0-52.0); HEMOGLOBIN 12.5 G/DL (14.2-18.0); LYMPHOCYTES % (AUTO) 31.4 % (20.0-45.0); MEAN CORPUSCULAR VOLUME 88 FL (80-99); MONOCYTES % (AUTO) 11.4 % (1.0-10.0); NEUTROPHILS % (AUTO) 53.7 % (45.0-75.0); PLATELET COUNT 307 K/UL (150-450); RED BLOOD COUNT 4.25 M/UL (4.70-6.10); RED CELL DISTRIBUTION WIDTH 11.4 % (11.6-14.8); WHITE BLOOD COUNT 4.7 K/UL (4.8-10.8)
[2018-05-21] MEDS: Carvedilol 6.25mg Tab ORAL SCH ×2 (08:48→20:23)
[2018-05-21] MEDS: clonazePAM 0.5mg tab ORAL SCH ×2 (08:49→17:06)
[2018-05-21] MEDS: Entacapone 200mg tab ORAL SCH (08:51)
[2018-05-21] MEDS: Heparin 5000 units/ml inj SUBQ SCH ×2 (09:00→20:23)
[2018-05-21 09:02] LABS: ANION GAP 9 mmol/L (5-15); BLOOD UREA NITROGEN 13 mg/dL (7-18); CALCIUM 9.4 MG/DL (8.5-10.1); CARBON DIOXIDE 25 MMOL/L (21-32); CHLORIDE 104 MMOL/L (98-107); CREATININE 0.7 MG/DL (0.55-1.30); POTASSIUM 3.9 MMOL/L (3.5-5.1); SODIUM 138 MMOL/L (136-145)
[2018-05-21] MEDS: Mylanta II UD 30ml ORAL PRN ×2 (12:51→19:03)
--- NOTE | 2018-05-21 16:24 | Internal Med Progress Note ---
Subjective Date of Service: May 21, 2018 Physician Name Mike Shanks Attending Physician Jeovany Mcclain MD Current Medications Medications (Trade) Dose Ordered Sig/Rakesh Route PRN Reason Start Time Stop Time Status Last Admin Dose Admin Acetaminophen (Tylenol) 650 mg Q4H PRN ORAL fever 05/19/18 21:45 06/18/18 21:44 Al Hydroxide/Mg Hydroxide (Mylanta II) 30 ml Q6H PRN ORAL dyspepsia 05/19/18 21:45 06/18/18 21:44 05/21/18 12:51 Carbidopa/Levodopa (Sinemet 10) 1 tab FIVE TIMES A DAY ORAL 05/20/18 16:00 06/19/18 15:59 05/21/18 09:03 Carvedilol (Coreg) 6.25 mg EVERY 12 HOURS ORAL 05/20/18 09:00 06/19/18 08:59 05/20/18 20:46 Clonazepam (KlonoPIN) 0.5 mg BID ORAL 05/20/18 09:00 05/27/18 08:59 05/20/18 17:51 Dextrose (Dextrose 50%) 25 ml STAT PRN IV Hypoglycemia 05/19/18 21:45 06/18/18 21:44 Dextrose (Dextrose 50%) 50 ml STAT PRN IV Hypoglycemia 05/19/18 21:45 06/18/18 21:44 Entacapone (Comtan) 200 mg DAILY ORAL 05/20/18 09:00 06/19/18 08:59 05/21/18 08:51 Heparin Sodium (Porcine) (Heparin 5000 units/ml) 5,000 units EVERY 12 HOURS SUBQ 05/20/18 21:00 06/19/18 20:59 05/21/18 09:00 Lorazepam (Ativan 2mg/ml 1ml) 0.5 mg Q4H PRN IV For Anxiety 05/19/18 21:45 05/26/18 21:44 05/21/18 14:44 Methocarbamol (Robaxin) 750 mg TID PRN ORAL Muscle Spasm 05/20/18 23:45 06/19/18 23:44 05/21/18 09:04 Morphine Sulfate (Morphine Sulfate) 1 mg Q4H PRN IVP For Pain 05/19/18 21:45 05/26/18 21:44 05/21/18 14:15 Ondansetron HCl (Zofran) 4 mg Q6H PRN IVP Nausea & Vomiting 05/19/18 21:45 06/18/18 21:44 Pantoprazole (Protonix) 40 mg DAILY ORAL 05/20/18 09:00 06/19/18 08:59 05/21/18 08:51 Polyethylene Glycol (Miralax) 17 gm HSPRN PRN ORAL Constipation 05/19/18 21:45 06/18/18 21:44 Quetiapine Fumarate (SEROquel) 50 mg DAILY ORAL 05/20/18 09:00 06/19/18 08:59 05/20/18 10:07 Zolpidem Tartrate (Ambien) 5 mg HSPRN PRN ORAL Insomnia 05/19/18 21:45 05/26/18 21:44 05/21/18 02:31 Allergies: Coded Allergies: NO KNOWN ALLERGIES (Verified Allergy, Unknown, 05/19/18) ROS Limited/Unobtainable: Yes Subjective 58 YO M with schizoaffective D/O admitted with panic attack. Cover tor Int Med Dr Mariano Objective Last Vital Signs Date Time Temp Pulse Resp B/P (MAP) Pulse Ox O2 Delivery O2 Flow Rate FiO2 05/21/18 15:49 97.2 71 18 154/60 (91) 96 97.2 05/21/18 09:00 Room Air General Appearance: WD/WN, no apparent distress, alert EENT: PERRL/EOMI, normal ENT inspection Neck: non-tender, normal alignment, supple, normal inspection Cardiovascular: normal peripheral pulses, normal rate, regular rhythm, no gallop/murmur, no JVD Respiratory/Chest: chest wall non-tender, lungs clear, normal breath sounds, no respiratory distress, no accessory muscle use Abdomen: normal bowel sounds, non tender, soft, no organomegaly, no mass Extremities: normal range of motion, non-tender Neurologic: writer editor II-XII grossly normal, no motor/sensory deficits Skin: normal pigmentation, warm/dry Laboratory Tests Test 05/21/18 07:15 05/21/18 14:50 White Blood Count 4.7 K/UL (4.8-10.8) L Red Blood Count 4.25 M/UL (4.70-6.10) L Hemoglobin 12.5 G/DL (14.2-18.0) L Hematocrit 37.5 % (42.0-52.0) L Mean Corpuscular Volume 88 FL (80-99) Mean Corpuscular Hemoglobin 29.4 PG (27.0-31.0) Mean Corpuscular Hemoglobin Concent 33.4 G/DL (32.0-36.0) Red Cell Distribution Width 11.4 % (11.6-14.8) L Platelet Count 307 K/UL (150-450) Mean Platelet Volume 5.4 FL (6.5-10.1) L Neutrophils (%) (Auto) 53.7 % (45.0-75.0) Lymphocytes (%) (Auto) 31.4 % (20.0-45.0) Monocytes (%) (Auto) 11.4 % (1.0-10.0) H Eosinophils (%) (Auto) 2.7 % (0.0-3.0) Basophils (%) (Auto) 0.8 % (0.0-2.0) Sodium Level 138 MMOL/L (136-145) Potassium Level 3.9 MMOL/L (3.5-5.1) Chloride Level 104 MMOL/L (98-107) Carbon Dioxide Level 25 MMOL/L (21-32) Anion Gap 9 mmol/L (5-15) Blood Urea Nitrogen 13 mg/dL (7-18) Creatinine 0.7 MG/DL (0.55-1.30) Estimat Glomerular Filtration Rate > 60 mL/min (>60) Glucose Level 132 MG/DL (74-106) H Calcium Level 9.4 MG/DL (8.5-10.1) Creatine Kinase MB 0.6 NG/ML (0.0-3.6) Troponin I 0.002 ng/mL (0.000-0.056) Intake and Output 05/20/18 05/21/18 19:00 07:00 Intake Total 480 ml 320 ml Balance 480 ml 320 ml Intake Oral 480 ml 320 ml # Voids 3 3 Assessment/Plan Problem List: (1) HTN (hypertension) Assessment & Plan: Continue coreg (2) Panic disorder (3) Parkinson disease Assessment & Plan: Continue sinemet (4) Schizoaffective disorder Assessment & Plan: see psych note. Continue seroquel and entacapone. Status: unchanged Shanks,Mike MD May 21, 2018 16:24
[2018-05-22] MEDS: Methocarbamol 750mg tab ORAL PRN ×2 (00:57→17:31)
[2018-05-22 03:53] VITALS: BP 100/61
[2018-05-22] MEDS: LORazepam Inj 2mg/ml 1ml IV PRN ×4 (05:44→20:59)
[2018-05-22 06:16] LABS: BASOPHILS % (AUTO) 0.7 % (0.0-2.0); EOSINOPHILS % (AUTO) 2.3 % (0.0-3.0); HEMATOCRIT 32.3 % (42.0-52.0); HEMOGLOBIN 10.7 G/DL (14.2-18.0); LYMPHOCYTES % (AUTO) 30.4 % (20.0-45.0); MEAN CORPUSCULAR VOLUME 88 FL (80-99); MONOCYTES % (AUTO) 8.7 % (1.0-10.0); PLATELET COUNT 288 K/UL (150-450); RED BLOOD COUNT 3.68 M/UL (4.70-6.10); RED CELL DISTRIBUTION WIDTH 11.5 % (11.6-14.8); WHITE BLOOD COUNT 5.6 K/UL (4.8-10.8)
[2018-05-22 06:28] LABS: ANION GAP 6 mmol/L (5-15); BLOOD UREA NITROGEN 16 mg/dL (7-18); CALCIUM 8.6 MG/DL (8.5-10.1); CARBON DIOXIDE 28 MMOL/L (21-32); CHLORIDE 106 MMOL/L (98-107); CREATININE 0.6 MG/DL (0.55-1.30); POTASSIUM 3.8 MMOL/L (3.5-5.1); SODIUM 140 MMOL/L (136-145)
[2018-05-22] MEDS: Levodopa/Carbidopa 10/100 tab ORAL SCH ×5 (06:37→19:00)
[2018-05-22 08:00] VITALS: BP 103/67
[2018-05-22] MEDS: clonazePAM 0.5mg tab ORAL SCH ×3 (09:00→17:30)
[2018-05-22] MEDS: Carvedilol 6.25mg Tab ORAL SCH ×3 (09:00→20:50)
[2018-05-22] MEDS: Entacapone 200mg tab ORAL SCH (09:14)
[2018-05-22] MEDS: Heparin 5000 units/ml inj SUBQ SCH ×2 (09:16→21:01)
[2018-05-22 12:00] VITALS: BP 107/58
--- NOTE | 2018-05-22 12:59 | Consultation ---
History of Present Illness General Date patient seen: May 18, 2018 Chief Complaint: General Complaint Referring physician: dr Mcclain Reason for Consultation: inpatient management Present Illness HPI this is a late entry the pt was seen on Monday. 58-year-old white male who presents with chief complaint of panic attack. the pt was anxious paranoid and depressed. the pt was able to provide hx Allergies: Coded Allergies: NO KNOWN ALLERGIES (Verified Allergy, Unknown, 05/19/18) Medication History Scheduled Albuterol Sulfate* (Proair Hfa*), 1 PUFF INH THREE TIMES A DAY, (Reported) Carbidopa/Levodopa 25-100 Mg* (Sinemet 25-100 Mg Tablet*), 1 TAB ORAL THREE TIMES A DAY, (Reported) Carvedilol* (Carvedilol*), 6.25 MG ORAL EVERY 12 HOURS, (Reported) Clonazepam* (Klonopin*), 0.5 MG ORAL BID, (Reported) Docusate Sodium* (Docusate Sodium*), 100 MG ORAL TWICE A DAY, (Reported) Entacapone (Entacapone), 200 MG PO DAILY, (Reported) Fluticasone Propionate (Fluticasone Propionate), 1 SPRAY NASAL DAILY, (Reported) Fluticasone Propionate* (Fluticasone Propionate*), 1 SPRAY NASAL DAILY, ( Reported) Lorazepam* (Ativan*), 2 MG ORAL DAILY, (Reported) Pantoprazole* (Pantoprazole*), 40 MG ORAL DAILY, (Reported) Paroxetine Hcl (Paxil), 20 MG PO HS, (Reported) Quetiapine Fumarate* (Quetiapine Fumarate*), 50 MG ORAL DAILY, (Reported) Scheduled PRN Hydrocodone Bit/Acetaminophen 5-325* ([place] 5-325*), 1 TAB ORAL Q6H PRN for For Pain, (Reported) Methocarbamol (Methocarbamol), 750 MG PO TID PRN for Muscle Spasm, (Reported) Methocarbamol* (Methocarbamol*), 750 MG ORAL THREE TIMES A DAY PRN for For Pain, (Reported) Miscellaneous Medications Paroxetine Hcl (Paxil), 10 MG PO, (Reported) Unable to Obtain Medications (Unable To Obtain Meds), (Reported) Patient History Healthcare decision maker Resuscitation status Full Code Advanced Directive on File No Physical Exam Last 24 Hour Vital Signs Date Time Temp Pulse Resp B/P (MAP) Pulse Ox O2 Delivery O2 Flow Rate FiO2 05/22/18 09:00 82 103/67 05/22/18 09:00 Room Air 05/22/18 08:00 97.8 82 20 103/67 (79) 98 97.8 05/22/18 03:53 98.5 80 19 100/61 (74) 98 98.5 05/21/18 23:34 98.2 72 18 103/57 (72) 99 98.2 05/21/18 22:35 105/59 (74) 05/21/18 21:00 Room Air 05/21/18 20:23 76 97/59 05/21/18 20:00 98.4 76 19 97/59 (72) 99 98.4 05/21/18 16:50 85 103/65 (78) 05/21/18 15:49 97.2 71 18 154/60 (91) 96 97.2 05/21/18 14:45 97.2 05/21/18 14:15 98.1 Intake and Output 05/21/18 05/22/18 19:00 07:00 Intake Total 240 ml 980 ml Balance 240 ml 980 ml Intake Oral 240 ml 480 ml IV Total 500 ml # Voids 3 3 # Bowel Movements 1 1 Laboratory Tests Test 05/21/18 14:50 05/22/18 05:45 Creatine Kinase MB 0.6 NG/ML (0.0-3.6) Troponin I 0.002 ng/mL (0.000-0.056) White Blood Count 5.6 K/UL (4.8-10.8) Red Blood Count 3.68 M/UL (4.70-6.10) L Hemoglobin 10.7 G/DL (14.2-18.0) L Hematocrit 32.3 % (42.0-52.0) L Mean Corpuscular Volume 88 FL (80-99) Mean Corpuscular Hemoglobin 29.0 PG (27.0-31.0) Mean Corpuscular Hemoglobin Concent 33.0 G/DL (32.0-36.0) Red Cell Distribution Width 11.5 % (11.6-14.8) L Platelet Count 288 K/UL (150-450) Mean Platelet Volume 5.1 FL (6.5-10.1) L Neutrophils (%) (Auto) 58.0 % (45.0-75.0) Lymphocytes (%) (Auto) 30.4 % (20.0-45.0) Monocytes (%) (Auto) 8.7 % (1.0-10.0) Eosinophils (%) (Auto) 2.3 % (0.0-3.0) Basophils (%) (Auto) 0.7 % (0.0-2.0) Sodium Level 140 MMOL/L (136-145) Potassium Level 3.8 MMOL/L (3.5-5.1) Chloride Level 106 MMOL/L (98-107) Carbon Dioxide Level 28 MMOL/L (21-32) Anion Gap 6 mmol/L (5-15) Blood Urea Nitrogen 16 mg/dL (7-18) Creatinine 0.6 MG/DL (0.55-1.30) Estimat Glomerular Filtration Rate > 60 mL/min (>60) Glucose Level 153 MG/DL (74-106) H Hemoglobin A1c 5.6 % (4.3-6.0) Calcium Level 8.6 MG/DL (8.5-10.1) Height (Feet): 5 Height (Inches): 10.00 Weight (Pounds): 165 Medications Current Medications Medications (Trade) Dose Ordered Sig/Rakesh Route PRN Reason Start Time Stop Time Status Last Admin Dose Admin Acetaminophen (Tylenol) 650 mg Q4H PRN ORAL fever 05/19/18 21:45 06/18/18 21:44 Al Hydroxide/Mg Hydroxide (Mylanta II) 30 ml Q6H PRN ORAL dyspepsia 05/19/18 21:45 06/18/18 21:44 05/21/18 19:03 Carbidopa/Levodopa (Sinemet 10/) 1 tab FIVE TIMES A DAY ORAL 05/20/18 16:00 06/19/18 15:59 05/22/18 09:17 Carvedilol (Coreg) 6.25 mg EVERY 12 HOURS ORAL 05/20/18 09:00 06/19/18 08:59 05/20/18 20:46 Clonazepam (KlonoPIN) 0.5 mg BID ORAL 05/20/18 09:00 05/27/18 08:59 05/20/18 17:51 Dextrose (Dextrose 50%) 25 ml STAT PRN IV Hypoglycemia 05/19/18 21:45 06/18/18 21:44 Dextrose (Dextrose 50%) 50 ml STAT PRN IV Hypoglycemia 05/19/18 21:45 06/18/18 21:44 Entacapone (Comtan) 200 mg DAILY ORAL 05/20/18 09:00 06/19/18 08:59 05/22/18 09:14 Heparin Sodium (Porcine) (Heparin 5000 units/ml) 5,000 units EVERY 12 HOURS SUBQ 05/20/18 21:00 06/19/18 20:59 05/22/18 09:16 Lorazepam (Ativan 2mg/ml 1ml) 0.5 mg Q4H PRN IV For Anxiety 05/19/18 21:45 05/26/18 21:44 05/22/18 11:06 Methocarbamol (Robaxin) 750 mg TID PRN ORAL Muscle Spasm 05/20/18 23:45 06/19/18 23:44 05/22/18 00:57 Morphine Sulfate (Morphine Sulfate) 1 mg Q4H PRN IVP For Pain 05/19/18 21:45 05/26/18 21:44 05/21/18 14:15 Ondansetron HCl (Zofran) 4 mg Q6H PRN IVP Nausea & Vomiting 05/19/18 21:45 06/18/18 21:44 Pantoprazole (Protonix) 40 mg DAILY ORAL 05/20/18 09:00 06/19/18 08:59 05/22/18 09:15 Polyethylene Glycol (Miralax) 17 gm HSPRN PRN ORAL Constipation 05/19/18 21:45 06/18/18 21:44 Quetiapine Fumarate (SEROquel) 50 mg DAILY ORAL 05/20/18 09:00 06/19/18 08:59 05/20/18 10:07 Sodium Chloride 1,000 ml @ 50 mls/hr Q20H IV 05/21/18 20:00 06/20/18 19:59 05/21/18 20:18 Zolpidem Tartrate (Ambien) 5 mg HSPRN PRN ORAL Insomnia 05/19/18 21:45 05/26/18 21:44 05/21/18 02:31 Assessment/Plan Assessment/Plan panic attack mdd paxil 20mg qhs ativan prn seroquel 25mg Ivan Coon MD May 22, 2018 12:58
--- NOTE | 2018-05-22 13:52 | Pulmonology Progress Note ---
Assessment/Plan Problems: (1) Generalized weakness (2) unable to care for himself (3) Encephalopathy (4) Parkinson disease (5) Schizoaffective disorder (6) HTN (hypertension) Assessment/Plan psych evaluation gi to see symptomatic treatment monitor BP Subjective ROS Limited/Unobtainable: No Constitutional: Reports: no symptoms HEENT: Repors: no symptoms Respiratory: Reports: no symptoms Allergies: Coded Allergies: NO KNOWN ALLERGIES (Verified Allergy, Unknown, 05/19/18) Objective Last 24 Hour Vital Signs Date Time Temp Pulse Resp B/P (MAP) Pulse Ox O2 Delivery O2 Flow Rate FiO2 05/22/18 12:00 98.2 84 16 107/58 (74) 98 98.2 05/22/18 09:00 82 103/67 05/22/18 09:00 Room Air 05/22/18 08:00 97.8 82 20 103/67 (79) 98 97.8 05/22/18 03:53 98.5 80 19 100/61 (74) 98 98.5 05/21/18 23:34 98.2 72 18 103/57 (72) 99 98.2 05/21/18 22:35 105/59 (74) 05/21/18 21:00 Room Air 05/21/18 20:23 76 97/59 05/21/18 20:00 98.4 76 19 97/59 (72) 99 98.4 05/21/18 16:50 85 103/65 (78) 05/21/18 15:49 97.2 71 18 154/60 (91) 96 97.2 05/21/18 14:45 97.2 05/21/18 14:15 98.1 Intake and Output 05/21/18 05/22/18 19:00 07:00 Intake Total 240 ml 1005 ml Balance 240 ml 1005 ml Intake Oral 240 ml 480 ml IV Total 525 ml # Voids 3 3 # Bowel Movements 1 1 General Appearance: WD/WN HEENT: normocephalic, atraumatic Respiratory/Chest: chest wall non-tender, lungs clear Cardiovascular: normal peripheral pulses, normal rate Abdomen: normal bowel sounds, soft, non tender Genitourinary: normal external genitalia Extremities: no cyanosis Skin: no rash Neurologic/Psychiatric: reporting consultant II-XII grossly normal Microbiology Date/Time Source Procedure Growth Status 05/19/18 19:51 Nasal Nares MRSA Culture - Final NO METHICILLIN RESISTANT STAPH AUREUS... Complete 05/19/18 19:51 Rectum VRE Culture - Final NO VANCOMYCIN RESISTANT ENTEROCOCCUS ... Complete 05/19/18 19:51 Rectum - Final NO CARBAPENEM-RESISTANT ENTEROBACTERI... Complete Laboratory Tests 05/21/18 14:50: Creatine Kinase MB 0.6, Troponin I 0.002 05/22/18 05:45: White Blood Count 5.6, Red Blood Count 3.68L, Hemoglobin 10.7L, Hematocrit 32.3L , Mean Corpuscular Volume 88, Mean Corpuscular Hemoglobin 29.0, Mean Corpuscular Hemoglobin Concent 33.0, Red Cell Distribution Width 11.5L, Platelet Count 288, Mean Platelet Volume 5.1L, Neutrophils (%) (Auto) 58.0, Lymphocytes (%) (Auto) 30.4, Monocytes (%) (Auto) 8.7, Eosinophils (%) (Auto) 2.3, Basophils (%) (Auto) 0.7, Sodium Level 140, Potassium Level 3.8, Chloride Level 106, Carbon Dioxide Level 28, Anion Gap 6, Blood Urea Nitrogen 16, Creatinine 0.6, Estimat Glomerular Filtration Rate > 60, Glucose Level 153H, Hemoglobin A1c 5.6, Calcium Level 8.6 Current Medications Medications (Trade) Dose Ordered Sig/Rakesh Route PRN Reason Start Time Stop Time Status Last Admin Dose Admin Acetaminophen (Tylenol) 650 mg Q4H PRN ORAL fever 05/19/18 21:45 06/18/18 21:44 Al Hydroxide/Mg Hydroxide (Mylanta II) 30 ml Q6H PRN ORAL dyspepsia 05/19/18 21:45 06/18/18 21:44 05/21/18 19:03 Carbidopa/Levodopa (Sinemet 10/100) 1 tab FIVE TIMES A DAY ORAL 05/20/18 16:00 06/19/18 15:59 05/22/18 13:26 Carvedilol (Coreg) 6.25 mg EVERY 12 HOURS ORAL 05/20/18 09:00 06/19/18 08:59 05/20/18 20:46 Clonazepam (KlonoPIN) 0.5 mg BID ORAL 05/20/18 09:00 9/9/18 08:59 05/20/18 17:51 Dextrose (Dextrose 50%) 25 ml STAT PRN IV Hypoglycemia 05/19/18 21:45 06/18/18 21:44 Dextrose (Dextrose 50%) 50 ml STAT PRN IV Hypoglycemia 05/19/18 21:45 06/18/18 21:44 Entacapone (Comtan) 200 mg DAILY ORAL 05/20/18 09:00 06/19/18 08:59 05/22/18 09:14 Heparin Sodium (Porcine) (Heparin 5000 units/ml) 5,000 units EVERY 12 HOURS SUBQ 05/20/18 21:00 06/19/18 20:59 05/22/18 09:16 Lorazepam (Ativan 2mg/ml 1ml) 0.5 mg Q4H PRN IV For Anxiety 05/19/18 21:45 05/26/18 21:44 05/22/18 11:06 Methocarbamol (Robaxin) 750 mg TID PRN ORAL Muscle Spasm 05/20/18 23:45 06/19/18 23:44 05/22/18 00:57 Morphine Sulfate (Morphine Sulfate) 1 mg Q4H PRN IVP For Pain 05/19/18 21:45 05/26/18 21:44 05/21/18 14:15 Ondansetron HCl (Zofran) 4 mg Q6H PRN IVP Nausea & Vomiting 05/19/18 21:45 06/18/18 21:44 Pantoprazole (Protonix) 40 mg DAILY ORAL 05/20/18 09:00 06/19/18 08:59 05/22/18 09:15 Polyethylene Glycol (Miralax) 17 gm HSPRN PRN ORAL Constipation 05/19/18 21:45 06/18/18 21:44 Quetiapine Fumarate (SEROquel) 50 mg DAILY ORAL 05/20/18 09:00 06/19/18 08:59 05/20/18 10:07 Sodium Chloride 1,000 ml @ 50 mls/hr Q20H IV 05/21/18 20:00 06/20/18 19:59 05/21/18 20:18 Zolpidem Tartrate (Ambien) 5 mg HSPRN PRN ORAL Insomnia 05/19/18 21:45 05/26/18 21:44 05/21/18 02:31 Jahaira Chan MD May 22, 2018 13:51
--- NOTE | 2018-05-22 15:12 | General Progress Note ---
Assessment/Plan Status: stable, progressing Assessment/Plan panic attack mdd paxil 20mg qhs ativan prn seroquel 25mg qam Subjective Date patient seen: May 22, 2018 Neurologic/Psychiatric: Reports: anxiety, depressed, emotional problems Allergies: Coded Allergies: NO KNOWN ALLERGIES (Verified Allergy, Unknown, 05/19/18) Objective Last 24 Hour Vital Signs Date Time Temp Pulse Resp B/P (MAP) Pulse Ox O2 Delivery O2 Flow Rate FiO2 05/22/18 12:00 98.2 84 16 107/58 (74) 98 98.2 05/22/18 09:00 82 103/67 05/22/18 09:00 Room Air 05/22/18 08:00 97.8 82 20 103/67 (79) 98 97.8 05/22/18 03:53 98.5 80 19 100/61 (74) 98 98.5 05/21/18 23:34 98.2 72 18 103/57 (72) 99 98.2 05/21/18 22:35 105/59 (74) 05/21/18 21:00 Room Air 05/21/18 20:23 76 97/59 05/21/18 20:00 98.4 76 19 97/59 (72) 99 98.4 05/21/18 16:50 85 103/65 (78) 05/21/18 15:49 97.2 71 18 154/60 (91) 96 97.2 Intake and Output 05/21/18 05/22/18 19:00 07:00 Intake Total 240 ml 1005 ml Balance 240 ml 1005 ml Intake Oral 240 ml 480 ml IV Total 525 ml # Voids 3 3 # Bowel Movements 1 1 Laboratory Tests 05/22/18 05:45: White Blood Count 5.6, Red Blood Count 3.68L, Hemoglobin 10.7L, Hematocrit 32.3L , Mean Corpuscular Volume 88, Mean Corpuscular Hemoglobin 29.0, Mean Corpuscular Hemoglobin Concent 33.0, Red Cell Distribution Width 11.5L, Platelet Count 288, Mean Platelet Volume 5.1L, Neutrophils (%) (Auto) 58.0, Lymphocytes (%) (Auto) 30.4, Monocytes (%) (Auto) 8.7, Eosinophils (%) (Auto) 2.3, Basophils (%) (Auto) 0.7, Sodium Level 140, Potassium Level 3.8, Chloride Level 106, Carbon Dioxide Level 28, Anion Gap 6, Blood Urea Nitrogen 16, Creatinine 0.6, Estimat Glomerular Filtration Rate > 60, Glucose Level 153H, Hemoglobin A1c 5.6, Calcium Level 8.6 Height (Feet): 5 Height (Inches): 10.00 Weight (Pounds): 165 General Appearance: no apparent distress, alert Neurologic: oriented x 3, responsive, depressed affect Ivan Caldwell MD May 22, 2018 15:12
[2018-05-22 16:00] VITALS: BP 118/67
[2018-05-22] MEDS: Mylanta II UD 30ml ORAL PRN (17:46)
--- NOTE | 2018-05-22 18:15 | Internal Med Progress Note ---
Subjective Date of Service: May 22, 2018 Physician Name Mike Shanks Attending Physician Jeovany Mcclain MD Current Medications Medications (Trade) Dose Ordered Sig/Rakesh Route PRN Reason Start Time Stop Time Status Last Admin Dose Admin Acetaminophen (Tylenol) 650 mg Q4H PRN ORAL fever 05/19/18 21:45 06/18/18 21:44 Al Hydroxide/Mg Hydroxide (Mylanta II) 30 ml Q6H PRN ORAL dyspepsia 05/19/18 21:45 06/18/18 21:44 05/22/18 17:46 Carbidopa/Levodopa (Sinemet ) 1 tab FIVE TIMES A DAY ORAL 05/20/18 16:00 06/19/18 15:59 05/22/18 15:30 Carvedilol (Coreg) 6.25 mg EVERY 12 HOURS ORAL 05/20/18 09:00 06/19/18 08:59 05/20/18 20:46 Clonazepam (KlonoPIN) 0.5 mg BID ORAL 05/20/18 09:00 05/27/18 08:59 05/22/18 17:30 Dextrose (Dextrose 50%) 25 ml STAT PRN IV Hypoglycemia 05/19/18 21:45 06/18/18 21:44 Dextrose (Dextrose 50%) 50 ml STAT PRN IV Hypoglycemia 05/19/18 21:45 06/18/18 21:44 Entacapone (Comtan) 200 mg DAILY ORAL 05/20/18 09:00 06/19/18 08:59 05/22/18 09:14 Heparin Sodium (Porcine) (Heparin 5000 units/ml) 5,000 units EVERY 12 HOURS SUBQ 05/20/18 21:00 06/19/18 20:59 05/22/18 09:16 Lorazepam (Ativan 2mg/ml 1ml) 0.5 mg Q4H PRN IV For Anxiety 05/19/18 21:45 05/26/18 21:44 05/22/18 15:43 Methocarbamol (Robaxin) 750 mg TID PRN ORAL Muscle Spasm 05/20/18 23:45 06/19/18 23:44 05/22/18 17:31 Morphine Sulfate (Morphine Sulfate) 1 mg Q4H PRN IVP For Pain 05/19/18 21:45 05/26/18 21:44 05/21/18 14:15 Ondansetron HCl (Zofran) 4 mg Q6H PRN IVP Nausea & Vomiting 05/19/18 21:45 06/18/18 21:44 Pantoprazole (Protonix) 40 mg DAILY ORAL 05/20/18 09:00 06/19/18 08:59 05/22/18 09:15 Polyethylene Glycol (Miralax) 17 gm HSPRN PRN ORAL Constipation 05/19/18 21:45 06/18/18 21:44 Quetiapine Fumarate (SEROquel) 50 mg DAILY ORAL 05/20/18 09:00 06/19/18 08:59 05/20/18 10:07 Sodium Chloride 1,000 ml @ 50 mls/hr Q20H IV 05/21/18 20:00 06/20/18 19:59 05/22/18 15:30 Zolpidem Tartrate (Ambien) 5 mg HSPRN PRN ORAL Insomnia 05/19/18 21:45 05/26/18 21:44 05/21/18 02:31 Allergies: Coded Allergies: NO KNOWN ALLERGIES (Verified Allergy, Unknown, 05/19/18) ROS Limited/Unobtainable: Yes Subjective 58 YO M with schizoaffective D/O admitted with panic attack. Cover tor Int Med Dr Mariano Objective Last Vital Signs Date Time Temp Pulse Resp B/P (MAP) Pulse Ox O2 Delivery O2 Flow Rate FiO2 05/22/18 16:00 98.1 89 16 118/67 (84) 98 98.1 05/22/18 09:00 Room Air Laboratory Tests Test 05/22/18 05:45 White Blood Count 5.6 K/UL (4.8-10.8) Red Blood Count 3.68 M/UL (4.70-6.10) L Hemoglobin 10.7 G/DL (14.2-18.0) L Hematocrit 32.3 % (42.0-52.0) L Mean Corpuscular Volume 88 FL (80-99) Mean Corpuscular Hemoglobin 29.0 PG (27.0-31.0) Mean Corpuscular Hemoglobin Concent 33.0 G/DL (32.0-36.0) Red Cell Distribution Width 11.5 % (11.6-14.8) L Platelet Count 288 K/UL (150-450) Mean Platelet Volume 5.1 FL (6.5-10.1) L Neutrophils (%) (Auto) 58.0 % (45.0-75.0) Lymphocytes (%) (Auto) 30.4 % (20.0-45.0) Monocytes (%) (Auto) 8.7 % (1.0-10.0) Eosinophils (%) (Auto) 2.3 % (0.0-3.0) Basophils (%) (Auto) 0.7 % (0.0-2.0) Sodium Level 140 MMOL/L (136-145) Potassium Level 3.8 MMOL/L (3.5-5.1) Chloride Level 106 MMOL/L (98-107) Carbon Dioxide Level 28 MMOL/L (21-32) Anion Gap 6 mmol/L (5-15) Blood Urea Nitrogen 16 mg/dL (7-18) Creatinine 0.6 MG/DL (0.55-1.30) Estimat Glomerular Filtration Rate > 60 mL/min (>60) Glucose Level 153 MG/DL (74-106) H Hemoglobin A1c 5.6 % (4.3-6.0) Calcium Level 8.6 MG/DL (8.5-10.1) Microbiology Date/Time Source Procedure Growth Status 05/19/18 19:51 Nasal Nares MRSA Culture - Final NO METHICILLIN RESISTANT STAPH AUREUS... Complete 05/19/18 19:51 Rectum VRE Culture - Final NO VANCOMYCIN RESISTANT ENTEROCOCCUS ... Complete 05/19/18 19:51 Rectum - Final NO CARBAPENEM-RESISTANT ENTEROBACTERI... Complete Intake and Output 05/21/18 05/22/18 19:00 07:00 Intake Total 240 ml 1005 ml Balance 240 ml 1005 ml Intake Oral 240 ml 480 ml IV Total 525 ml # Voids 3 3 # Bowel Movements 1 1 Objective General Appearance: WD/WN, no apparent distress, alert EENT: PERRL/EOMI, normal ENT inspection Neck: non-tender, normal alignment, supple, normal inspection Cardiovascular: normal peripheral pulses, normal rate, regular rhythm, no gallop/murmur, no JVD Respiratory/Chest: chest wall non-tender, lungs clear, normal breath sounds, no respiratory distress, no accessory muscle use Abdomen: normal bowel sounds, non tender, soft, no organomegaly, no mass Extremities: normal range of motion, non-tender Neurologic: insurance service representative II-XII grossly normal, no motor/sensory deficits Skin: normal pigmentation, warm/dry Assessment/Plan Problem List: (1) HTN (hypertension) Assessment & Plan: Continue coreg (2) Panic disorder (3) Parkinson disease Assessment & Plan: Continue sinemet (4) Schizoaffective disorder Assessment & Plan: see psych note. Continue seroquel and entacapone. Status: stable Mike Shanks MD May 22, 2018 18:15
[2018-05-22 20:00] VITALS: BP 111/67
[2018-05-23] VITALS (7 sets, daily range): BP systolic 98–135; BP diastolic 57–75
[2018-05-23] MEDS: LORazepam Inj 2mg/ml 1ml IV PRN ×3 (01:22→14:50)
[2018-05-23 06:36] LABS: BASOPHILS % (AUTO) 0.7 % (0.0-2.0); EOSINOPHILS % (AUTO) 1.9 % (0.0-3.0); HEMATOCRIT 33.1 % (42.0-52.0); HEMOGLOBIN 10.8 G/DL (14.2-18.0); MEAN CORPUSCULAR VOLUME 88 FL (80-99); MONOCYTES % (AUTO) 9.5 % (1.0-10.0); NEUTROPHILS % (AUTO) 55.9 % (45.0-75.0); PLATELET COUNT 318 K/UL (150-450); RED BLOOD COUNT 3.75 M/UL (4.70-6.10); RED CELL DISTRIBUTION WIDTH 11.4 % (11.6-14.8); WHITE BLOOD COUNT 6.6 K/UL (4.8-10.8)
[2018-05-23] MEDS: Levodopa/Carbidopa 10/100 tab ORAL SCH ×5 (06:39→20:19)
[2018-05-23 06:44] LABS: ANION GAP 7 mmol/L (5-15); BLOOD UREA NITROGEN 12 mg/dL (7-18); CALCIUM 8.9 MG/DL (8.5-10.1); CARBON DIOXIDE 28 MMOL/L (21-32); CHLORIDE 105 MMOL/L (98-107); CREATININE 0.6 MG/DL (0.55-1.30); POTASSIUM 3.8 MMOL/L (3.5-5.1); SODIUM 139 MMOL/L (136-145)
[2018-05-23] MEDS: Mylanta II UD 30ml ORAL PRN (07:54)
[2018-05-23] MEDS: clonazePAM 0.5mg tab ORAL SCH ×2 (09:40→18:00)
[2018-05-23] MEDS: Carvedilol 6.25mg Tab ORAL SCH (09:44)
[2018-05-23] MEDS: Heparin 5000 units/ml inj SUBQ SCH (09:45)
[2018-05-23] MEDS: Entacapone 200mg tab ORAL SCH (10:27)
[2018-05-23] MEDS: Methocarbamol 750mg tab ORAL PRN (12:30)
--- NOTE | 2018-05-23 13:53 | Pulmonology Progress Note ---
Assessment/Plan Problems: (1) Generalized weakness (2) unable to care for himself (3) Encephalopathy (4) Parkinson disease (5) Schizoaffective disorder (6) HTN (hypertension) Assessment/Plan c/o spasm psych evaluation gi to see symptomatic treatment monitor BP d/w Dr rodriguez Subjective ROS Limited/Unobtainable: No Constitutional: Reports: no symptoms Allergies: Coded Allergies: NO KNOWN ALLERGIES (Verified Allergy, Unknown, 05/19/18) Objective Last 24 Hour Vital Signs Date Time Temp Pulse Resp B/P (MAP) Pulse Ox O2 Delivery O2 Flow Rate FiO2 05/23/18 12:36 81 123/67 (85) 05/23/18 09:52 83 129/74 (92) 05/23/18 09:44 83 129/74 05/23/18 09:00 Room Air 05/23/18 08:00 98.2 82 19 123/74 (90) 99 98.2 05/23/18 04:00 97.5 80 19 135/75 (95) 96 97.5 05/23/18 00:00 97.3 89 19 120/65 (83) 99 97.3 05/22/18 21:00 Room Air 05/22/18 20:50 87 111/67 05/22/18 20:00 98.2 87 19 111/67 (82) 99 98.2 05/22/18 16:00 98.1 89 16 118/67 (84) 98 98.1 Intake and Output 05/22/18 05/23/18 19:00 07:00 Intake Total 1250 ml 480 ml Output Total 700 ml 600 ml Balance 550 ml -120 ml Intake Oral 800 ml 480 ml IV Total 450 ml Output Urine Total 700 ml 600 ml # Voids 7 2 General Appearance: WD/WN HEENT: normocephalic, atraumatic Cardiovascular: regular rhythm Abdomen: normal bowel sounds, no organomegaly Genitourinary: normal external genitalia Extremities: no cyanosis Neurologic/Psychiatric: stream control officer II-XII grossly normal Laboratory Tests 05/23/18 05:15: White Blood Count 6.6, Red Blood Count 3.75L, Hemoglobin 10.8L, Hematocrit 33.1L , Mean Corpuscular Volume 88, Mean Corpuscular Hemoglobin 28.8, Mean Corpuscular Hemoglobin Concent 32.7, Red Cell Distribution Width 11.4L, Platelet Count 318, Mean Platelet Volume 5.3L, Neutrophils (%) (Auto) 55.9, Lymphocytes (%) (Auto) 32.0, Monocytes (%) (Auto) 9.5, Eosinophils (%) (Auto) 1.9, Basophils (%) (Auto) 0.7, Sodium Level 139, Potassium Level 3.8, Chloride Level 105, Carbon Dioxide Level 28, Anion Gap 7, Blood Urea Nitrogen 12, Creatinine 0.6, Estimat Glomerular Filtration Rate > 60, Glucose Level 102, Calcium Level 8.9 Current Medications Medications (Trade) Dose Ordered Sig/Rakesh Route PRN Reason Start Time Stop Time Status Last Admin Dose Admin Acetaminophen (Tylenol) 650 mg Q4H PRN ORAL fever 05/19/18 21:45 06/18/18 21:44 Al Hydroxide/Mg Hydroxide (Mylanta II) 30 ml Q6H PRN ORAL dyspepsia 05/19/18 21:45 06/18/18 21:44 05/23/18 07:54 Carbidopa/Levodopa (Sinemet ) 1 tab FIVE TIMES A DAY ORAL 05/20/18 16:00 06/19/18 15:59 05/23/18 13:39 Carvedilol (Coreg) 6.25 mg EVERY 12 HOURS ORAL 05/20/18 09:00 06/19/18 08:59 05/23/18 09:44 Clonazepam (KlonoPIN) 0.5 mg BID ORAL 05/20/18 09:00 05/27/18 08:59 05/23/18 09:40 Dextrose (Dextrose 50%) 25 ml STAT PRN IV Hypoglycemia 05/19/18 21:45 06/18/18 21:44 Dextrose (Dextrose 50%) 50 ml STAT PRN IV Hypoglycemia 05/19/18 21:45 06/18/18 21:44 Entacapone (Comtan) 200 mg DAILY ORAL 05/20/18 09:00 06/19/18 08:59 05/23/18 10:27 Heparin Sodium (Porcine) (Heparin 5000 units/ml) 5,000 units EVERY 12 HOURS SUBQ 05/20/18 21:00 06/19/18 20:59 05/23/18 09:45 Lorazepam (Ativan 2mg/ml 1ml) 0.5 mg Q4H PRN IV For Anxiety 05/19/18 21:45 05/26/18 21:44 05/23/18 08:51 Methocarbamol (Robaxin) 750 mg TID PRN ORAL Muscle Spasm 05/20/18 23:45 06/19/18 23:44 05/23/18 12:30 Morphine Sulfate (Morphine Sulfate) 1 mg Q4H PRN IVP For Pain 05/19/18 21:45 05/26/18 21:44 05/21/18 14:15 Ondansetron HCl (Zofran) 4 mg Q6H PRN IVP Nausea & Vomiting 05/19/18 21:45 06/18/18 21:44 Pantoprazole (Protonix) 40 mg DAILY ORAL 05/20/18 09:00 06/19/18 08:59 05/23/18 09:39 Polyethylene Glycol (Miralax) 17 gm HSPRN PRN ORAL Constipation 05/19/18 21:45 06/18/18 21:44 Quetiapine Fumarate (SEROquel) 50 mg DAILY ORAL 05/20/18 09:00 06/19/18 08:59 05/20/18 10:07 Sodium Chloride 1,000 ml @ 50 mls/hr Q20H IV 05/21/18 20:00 06/20/18 19:59 05/23/18 12:33 Zolpidem Tartrate (Ambien) 5 mg HSPRN PRN ORAL Insomnia 05/19/18 21:45 05/26/18 21:44 05/21/18 02:31 Jahaira Chan MD May 23, 2018 13:53
[2018-05-23] MEDS ORDERED: PAXIL10 MG/5 ML PO ×2 (14:29→14:30)
[2018-05-23] MEDS ORDERED: ATIVAN2 MG ORAL (14:34)
--- NOTE | 2018-05-23 16:05 | Cardiology Report ---
APPROVED REPORT EKG Measurement Heart [id number] DC 128P81 [id number] Normal sinus rhythm Normal ECG
--- NOTE | 2018-05-23 17:06 | Internal Med Progress Note ---
Subjective Date of Service: May 23, 2018 Physician Name Mike Shanks Attending Physician Jeovany Mcclain MD Current Medications Medications (Trade) Dose Ordered Sig/Rakesh Route PRN Reason Start Time Stop Time Status Last Admin Dose Admin Acetaminophen (Tylenol) 650 mg Q4H PRN ORAL fever 05/19/18 21:45 06/18/18 21:44 Al Hydroxide/Mg Hydroxide (Mylanta II) 30 ml Q6H PRN ORAL dyspepsia 05/19/18 21:45 06/18/18 21:44 05/23/18 07:54 Carbidopa/Levodopa (Sinemet 10) 1 tab FIVE TIMES A DAY ORAL 05/20/18 16:00 06/19/18 15:59 05/23/18 16:43 Carvedilol (Coreg) 6.25 mg EVERY 12 HOURS ORAL 05/20/18 09:00 06/19/18 08:59 05/23/18 09:44 Clonazepam (KlonoPIN) 0.5 mg BID ORAL 05/20/18 09:00 05/27/18 08:59 05/23/18 09:40 Dextrose (Dextrose 50%) 25 ml STAT PRN IV Hypoglycemia 05/19/18 21:45 06/18/18 21:44 Dextrose (Dextrose 50%) 50 ml STAT PRN IV Hypoglycemia 05/19/18 21:45 06/18/18 21:44 Entacapone (Comtan) 200 mg DAILY ORAL 05/20/18 09:00 06/19/18 08:59 05/23/18 10:27 Heparin Sodium (Porcine) (Heparin 5000 units/ml) 5,000 units EVERY 12 HOURS SUBQ 05/20/18 21:00 06/19/18 20:59 05/23/18 09:45 Lorazepam (Ativan 2mg/ml 1ml) 0.5 mg Q4H PRN IV For Anxiety 05/19/18 21:45 05/26/18 21:44 05/23/18 14:50 Methocarbamol (Robaxin) 750 mg TID PRN ORAL Muscle Spasm 05/20/18 23:45 06/19/18 23:44 05/23/18 12:30 Morphine Sulfate (Morphine Sulfate) 1 mg Q4H PRN IVP For Pain 05/19/18 21:45 05/26/18 21:44 05/21/18 14:15 Ondansetron HCl (Zofran) 4 mg Q6H PRN IVP Nausea & Vomiting 05/19/18 21:45 06/18/18 21:44 Pantoprazole (Protonix) 40 mg DAILY ORAL 05/20/18 09:00 06/19/18 08:59 05/23/18 09:39 Paroxetine HCl (Paxil) 20 mg BEDTIME ORAL 05/23/18 21:00 06/22/18 20:59 Polyethylene Glycol (Miralax) 17 gm HSPRN PRN ORAL Constipation 05/19/18 21:45 06/18/18 21:44 Quetiapine Fumarate (SEROquel) 50 mg DAILY ORAL 05/20/18 09:00 06/19/18 08:59 05/20/18 10:07 Sodium Chloride 1,000 ml @ 50 mls/hr Q20H IV 05/21/18 20:00 06/20/18 19:59 05/23/18 12:33 Zolpidem Tartrate (Ambien) 5 mg HSPRN PRN ORAL Insomnia 05/19/18 21:45 05/26/18 21:44 05/21/18 02:31 Allergies: Coded Allergies: NO KNOWN ALLERGIES (Verified Allergy, Unknown, 05/19/18) ROS Limited/Unobtainable: No Constitutional: Reports: no symptoms HEENT: Reports: no symptoms Cardiovascular: Reports: no symptoms Respiratory: Reports: no symptoms Gastrointestinal/Abdominal: Reports: no symptoms Genitourinary: Reports: no symptoms Neurologic/Psychiatric: Reports: no symptoms Subjective 58 YO M with schizoaffective D/O admitted with panic attack. Cover tor Int Med Dr Mcclain. Await discharge home Objective Last Vital Signs Date Time Temp Pulse Resp B/P (MAP) Pulse Ox O2 Delivery O2 Flow Rate FiO2 05/23/18 12:36 81 123/67 (85) 05/23/18 09:00 Room Air 05/23/18 08:00 98.2 19 99 98.2 Laboratory Tests Test 05/23/18 05:15 White Blood Count 6.6 K/UL (4.8-10.8) Red Blood Count 3.75 M/UL (4.70-6.10) L Hemoglobin 10.8 G/DL (14.2-18.0) L Hematocrit 33.1 % (42.0-52.0) L Mean Corpuscular Volume 88 FL (80-99) Mean Corpuscular Hemoglobin 28.8 PG (27.0-31.0) Mean Corpuscular Hemoglobin Concent 32.7 G/DL (32.0-36.0) Red Cell Distribution Width 11.4 % (11.6-14.8) L Platelet Count 318 K/UL (150-450) Mean Platelet Volume 5.3 FL (6.5-10.1) L Neutrophils (%) (Auto) 55.9 % (45.0-75.0) Lymphocytes (%) (Auto) 32.0 % (20.0-45.0) Monocytes (%) (Auto) 9.5 % (1.0-10.0) Eosinophils (%) (Auto) 1.9 % (0.0-3.0) Basophils (%) (Auto) 0.7 % (0.0-2.0) Sodium Level 139 MMOL/L (136-145) Potassium Level 3.8 MMOL/L (3.5-5.1) Chloride Level 105 MMOL/L (98-107) Carbon Dioxide Level 28 MMOL/L (21-32) Anion Gap 7 mmol/L (5-15) Blood Urea Nitrogen 12 mg/dL (7-18) Creatinine 0.6 MG/DL (0.55-1.30) Estimat Glomerular Filtration Rate > 60 mL/min (>60) Glucose Level 102 MG/DL (74-106) Calcium Level 8.9 MG/DL (8.5-10.1) Intake and Output 05/22/18 05/23/18 19:00 07:00 Intake Total 1250 ml 480 ml Output Total 700 ml 600 ml Balance 550 ml -120 ml Intake Oral 800 ml 480 ml IV Total 450 ml Output Urine Total 700 ml 600 ml # Voids 7 2 Objective General Appearance: WD/WN, no apparent distress, alert EENT: PERRL/EOMI, normal ENT inspection Neck: non-tender, normal alignment, supple, normal inspection Cardiovascular: normal peripheral pulses, normal rate, regular rhythm, no gallop/murmur, no JVD Respiratory/Chest: chest wall non-tender, lungs clear, normal breath sounds, no respiratory distress, no accessory muscle use Abdomen: normal bowel sounds, non tender, soft, no organomegaly, no mass Extremities: normal range of motion, non-tender Neurologic: olive grower II-XII grossly normal, no motor/sensory deficits Skin: normal pigmentation, warm/dry Assessment/Plan Problem List: (1) HTN (hypertension) Assessment & Plan: Continue coreg (2) Panic disorder (3) Parkinson disease Assessment & Plan: Continue sinemet (4) Schizoaffective disorder Assessment & Plan: see psych note. Continue seroquel and entacapone. Status: stable Assessment/Plan REfused admission to [facility] psych [facility]. Discharge home today Mike Shanks MD May 23, 2018 17:06
[2018-05-23] MEDS ORDERED: PARoxetine 20mg tab ORAL SCH (21:00)
--- NOTE | 2018-05-23 23:30 | General Progress Note ---
Assessment/Plan Status: stable Assessment/Plan panic attack mdd paxil 20mg qhs ativan prn seroquel 25mg qam Subjective Date patient seen: May 23, 2018 Constitutional: Reports: malaise, weakness Neurologic/Psychiatric: Reports: anxiety, depressed, emotional problems, headache Allergies: Coded Allergies: NO KNOWN ALLERGIES (Verified Allergy, Unknown, 05/19/18) Objective Last 24 Hour Vital Signs Date Time Temp Pulse Resp B/P (MAP) Pulse Ox O2 Delivery O2 Flow Rate FiO2 05/23/18 20:00 98.4 79 19 98/57 (71) 100 98.4 05/23/18 16:00 98.1 86 20 124/73 (90) 98 98.1 05/23/18 12:36 81 123/67 (85) 05/23/18 09:52 83 129/74 (92) 05/23/18 09:44 83 129/74 05/23/18 09:00 Room Air 05/23/18 08:00 98.2 82 19 123/74 (90) 99 98.2 05/23/18 04:00 97.5 80 19 135/75 (95) 96 97.5 05/23/18 00:00 97.3 89 19 120/65 (83) 99 97.3 Intake and Output 05/22/18 05/23/18 19:00 07:00 Intake Total 1250 ml 480 ml Output Total 700 ml 600 ml Balance 550 ml -120 ml Intake Oral 800 ml 480 ml IV Total 450 ml Output Urine Total 700 ml 600 ml # Voids 7 2 Laboratory Tests 05/23/18 05:15: White Blood Count 6.6, Red Blood Count 3.75L, Hemoglobin 10.8L, Hematocrit 33.1L , Mean Corpuscular Volume 88, Mean Corpuscular Hemoglobin 28.8, Mean Corpuscular Hemoglobin Concent 32.7, Red Cell Distribution Width 11.4L, Platelet Count 318, Mean Platelet Volume 5.3L, Neutrophils (%) (Auto) 55.9, Lymphocytes (%) (Auto) 32.0, Monocytes (%) (Auto) 9.5, Eosinophils (%) (Auto) 1.9, Basophils (%) (Auto) 0.7, Sodium Level 139, Potassium Level 3.8, Chloride Level 105, Carbon Dioxide Level 28, Anion Gap 7, Blood Urea Nitrogen 12, Creatinine 0.6, Estimat Glomerular Filtration Rate > 60, Glucose Level 102, Calcium Level 8.9 Height (Feet): 5 Height (Inches): 10.00 Weight (Pounds): 126 General Appearance: no apparent distress, alert Neurologic: oriented x 3, responsive, depressed affect Ivan Caldwell MD May 23, 2018 23:30
--- NOTE | 2018-05-24 14:15 | Discharge Summary ---
Discharge Summary Discharge Summary _ DATE OF ADMISSION: 05/19/2018 DATE OF DISCHARGE: 05/23/2018 CONSULTANTS: Dr. Jahaira Caldwell BRIEF HOSPITAL COURSE: Patient is a 58-year-old male, who presented with chief complaint of panic attack. Patient was recently admitted to [facility] couple of days prior but left AGAINST MEDICAL ADVICE. He became extremely anxious and EMS was called. He was transferred to [facility]. He has medical history significant of Parkinson's disease and is on Sinemet 3 tid. On evaluation at ED, vital signs were stable. He was anxious and was given Ativan. Blood work did not show any leukocytosis. Urine toxicology was negative. Upon conversation with patient's family. Patient unable to be safely discharged home, patient was then admitted for schizoaffective disorder and unable to care for self. He was given gentle IV hydration. He was resumed on his antiparkinson medications. Venous duplex of the lower extremity was negative for DVT. He underwent psychiatric evaluation. He was given Paxil 20 mg daily at bedtime and Seroquel 25 mg in the morning. Patient had anemia. Blood levels were monitored. He was given physical and occupational therapy. Social service was consulted. He refused admission to a jail facility and psychiatric unit. He was eventually discharged home. FINAL DIAGNOSES: Acute encephalopathy Panic attack Major depressive disorder Schizoaffective disorder Parkinson's disease Generalized weakness Unable to care for self Hypertension DISPOSITION: Patient was discharged home. DISCHARGE MEDICATIONS: Refer to Discharge Medication List. DISCHARGE INSTRUCTIONS: Follow up with PCP in a week. I have been assigned to dictate discharge summary on this account, and I was not involved in the patient's management. Maggie Stafford NP May 24, 2018 14:15
--- NOTE | 2018-05-24 15:59 | Diagnostic Imaging Report ---
APPROVED REPORT CPT Code: 87065 Present Symptoms Comments: PAIN BILATERAL: Imaging reveals a patent deep venous system bilaterally. There is no evidence of thrombus within the femoral, popliteal or tibial segments. The greater saphenous veins are also within normal limits. Doppler indicates normal spontaneous flow within these segments.
== END 2018-05-23 20:30 | disposition home or self-care (01) | DRG 72 ==
LOC: EDBD 18:46 → EMR 19:00 → EDBEDREQ 19:25 → 4E 20:43
DX: G93.40 Encephalopathy, unspecified (principal); F41.0 Panic disorder [episodic paroxysmal anxiety]; F32.9 Major depressive disorder, single episode, unspecified; F25.9 Schizoaffective disorder, unspecified; G20 Parkinson's disease; R53.1 Weakness; I10 Essential (primary) hypertension; D64.9 Anemia, unspecified
CPT/HCPCS: 36415; 80048; 80053; 80061; 80307; 80329; 82553; 82962; 83036; 84443; 84484; 85025; 87070; 87081; 87205; 93005; 93970; 96374; 97802; 99285

== ENCOUNTER 2018-09-05 13:37 | Emergency (ER) | payer OTHER, BC ==
[~2018-09-05] VITALS: Ht 172.7 cm; Wt 77.1 kg
[~2018-09-05 13:37] MED LIST changes: +ATIVAN2 MG ORAL; +CARVEDILOL6.25 MG ORAL; +DOCUSATE SODIU100 MG ORAL; +ENTACAPONE200 MG PO; +FLONASE1 SPRAYS NASAL; +FLUTICASONE PRO16 G1 NASAL; +KLONOPIN0.5 MG ORAL; +METHOCARBAMOL750 M1 PO; +METHOCARBAMOL750 MG ORAL; +NORCO 5-325 TA1 EACH ORAL; +PANTOPRAZOLE SO40 MG ORAL; +PAXIL10 MG/5 ML PO; +PROAIR HFA8.5 GM INH; +QUETIAPINE FUMA50 MG ORAL
[2018-09-05 14:00] VITALS: BP 136/78
[2018-09-05] MEDS ORDERED: LORazepam Inj 2mg/ml 1ml IM ONE (14:00)
--- NOTE | 2018-09-05 14:10 | Emergency Room Report ---
History of Present Illness General Chief Complaint: General Complaint Source: Patient Present Illness HPI Patient is a 58-year-old male who presented after increased muscle spasming. Patient prior history of anxiety as well as Parkinson's disease. Patient had previously been noted to have the multiple surgeries in the past. Patient reports having increased spasming to his neck as well as to his upper extremities. Patient prior cervical surgery. The patient had last surgery approximately 8 months ago. He had no recent trauma. Patient not been having any fever. Allergies: Coded Allergies: NO KNOWN ALLERGIES (Verified Allergy, Unknown, 05/19/18) Patient History Past Medical History: see triage record Reviewed Nursing Documentation: PMH: Agreed; PSxH: Agreed Nursing Documentation-PMH Hx Cardiac Problems: No Hx Cancer: No Hx Gastrointestinal Problems: No Hx Neurological Problems: Yes Hx Parkinson's Disease: Yes Review of Systems All Other Systems: negative except mentioned in HPI Physical Exam Vital Signs Date Time Temp Pulse Resp B/P (MAP) Pulse Ox O2 Delivery O2 Flow Rate FiO2 09/05/18 13:51 98.6 84 16 136/78 96 Room Air Sp02 EP Interpretation: reviewed, normal General Appearance: normal inspection, alert, GCS 15, Chronically Ill Head: atraumatic ENT: normal ENT inspection, hearing grossly normal, normal voice Neck: normal inspection, full range of motion, supple, no bony tend Respiratory: normal inspection, lungs clear, normal breath sounds, no respiratory distress, no retraction, no wheezing Cardiovascular #1: regular rate, rhythm, no edema Gastrointestinal: normal inspection, normal bowel sounds, non tender, soft, no guarding, no hernia Genitourinary: no CVA tenderness Musculoskeletal: normal inspection, back normal, normal range of motion Neurologic: normal inspection, alert, responsive, speech normal Psychiatric: normal inspection, judgement/insight normal, mood/affect normal Skin: normal inspection, normal color, no rash Medical Decision Making Diagnostic Impression: Primary Impression: Anxiety Additional Impression: Muscle spasm ER Course Patient presented for anxiety and muscle spasms. Differential diagnosis include was not limited to anxiety, medication withdrawal, spinal cord injury, myocardial injury among others. Because of complexity of patient's case laboratory tests were ordered.. Patient was noted to have prior history of anxiety. He was given IM Ativan for muscle spasming. Patient was noted to have some improvement after IV hydration. Patient's labs showed some hypomagnesemia which was given IV correction. The patient was advised to follow-up with his neurosurgeon as well as his mental health provider. Patient does not appear to be in any acute difficulty at this time. Patient appears to have some chronic anxiety. Labs Test 09/05/18 14:45 09/05/18 15:30 09/05/18 16:49 Sodium Level 134 MMOL/L (136-145) Potassium Level 4.3 MMOL/L (3.5-5.1) Chloride Level 100 MMOL/L (98-107) Carbon Dioxide Level 25 MMOL/L (21-32) Anion Gap 9 mmol/L (5-15) Blood Urea Nitrogen 11 mg/dL (7-18) Creatinine 0.8 MG/DL (0.55-1.30) Estimat Glomerular Filtration Rate > 60 mL/min (>60) Glucose Level 111 MG/DL (74-106) Calcium Level 9.0 MG/DL (8.5-10.1) Magnesium Level 1.7 MG/DL (1.8-2.4) Total Bilirubin 0.5 MG/DL (0.2-1.0) Aspartate Amino Transf (AST/SGOT) 6 U/L (15-37) Alanine Aminotransferase (ALT/SGPT) 18 U/L (12-78) Alkaline Phosphatase 69 U/L (46-116) Total Protein 7.4 G/DL (6.4-8.2) Albumin 3.6 G/DL (3.4-5.0) Globulin 3.8 g/dL Albumin/Globulin Ratio 0.9 (1.0-2.7) Lipase 99 U/L (73-393) White Blood Count 5.3 K/UL (4.8-10.8) Red Blood Count 3.86 M/UL (4.70-6.10) Hemoglobin 10.4 G/DL (14.2-18.0) Hematocrit 32.3 % (42.0-52.0) Mean Corpuscular Volume 83 FL (80-99) Mean Corpuscular Hemoglobin 27.0 PG (27.0-31.0) Mean Corpuscular Hemoglobin Concent 32.3 G/DL (32.0-36.0) Red Cell Distribution Width 13.7 % (11.6-14.8) Platelet Count 264 K/UL (150-450) Mean Platelet Volume 5.8 FL (6.5-10.1) Neutrophils (%) (Auto) 59.2 % (45.0-75.0) Lymphocytes (%) (Auto) 30.2 % (20.0-45.0) Monocytes (%) (Auto) 8.9 % (1.0-10.0) Eosinophils (%) (Auto) 0.7 % (0.0-3.0) Basophils (%) (Auto) 1.0 % (0.0-2.0) Urine Color Yellow Urine Appearance Clear Urine pH 5 (4.5-8.0) Urine Specific [place] 1.020 (1.005-1.035) Urine Protein Negative (NEGATIVE) Urine Glucose (UA) Negative (NEGATIVE) Urine Ketones 2+ (NEGATIVE) Urine Blood Negative (NEGATIVE) Urine Nitrite Negative (NEGATIVE) Urine Bilirubin Negative (NEGATIVE) Urine Urobilinogen Normal MG/DL (0.0-1.0) Urine Leukocyte Esterase Negative (NEGATIVE) Last Vital Signs Date Time Temp Pulse Resp B/P (MAP) Pulse Ox O2 Delivery O2 Flow Rate FiO2 09/05/18 13:51 98.6 84 16 136/78 96 Room Air Status: improved Disposition: HOME, SELF-CARE Condition: Stable Scripts Lorazepam* (ATIVAN*) 1 Mg Tablet 1 MG ORAL THREE TIMES A DAY, #10 TAB Prov: Paramjit Cabrera MD 09/05/18 Paramjit Cabrera MD Sep 05, 2018 14:10
[2018-09-05 15:30] LABS: ANION GAP 9 mmol/L (5-15); BLOOD UREA NITROGEN 11 mg/dL (7-18); CARBON DIOXIDE 25 MMOL/L (21-32); CHLORIDE 100 MMOL/L (98-107); CREATININE 0.8 MG/DL (0.55-1.30); POTASSIUM 4.3 MMOL/L (3.5-5.1); SODIUM 134 MMOL/L (136-145)
[2018-09-05 15:34] LABS: ALANINE AMINOTRANSFERASE 18 U/L (12-78); ALBUMIN 3.6 G/DL (3.4-5.0); ALBUMIN/GLOBULIN RATIO 0.9 (1.0-2.7); ALKALINE PHOSPHATASE 69 U/L (46-116); ASPARTATE AMINO TRANSFERASE 6 U/L (15-37); BILIRUBIN,TOTAL 0.5 MG/DL (0.2-1.0)
[2018-09-05] MEDS ORDERED: Morphine Sulfate 2mg/ml Inj IVP ONE (15:45)
[2018-09-05 15:54] LABS: EOSINOPHILS % (AUTO) 0.7 % (0.0-3.0); HEMATOCRIT 32.3 % (42.0-52.0); HEMOGLOBIN 10.4 G/DL (14.2-18.0); LYMPHOCYTES % (AUTO) 30.2 % (20.0-45.0); MEAN CORPUSCULAR VOLUME 83 FL (80-99); MONOCYTES % (AUTO) 8.9 % (1.0-10.0); NEUTROPHILS % (AUTO) 59.2 % (45.0-75.0); PLATELET COUNT 264 K/UL (150-450); RED BLOOD COUNT 3.86 M/UL (4.70-6.10); RED CELL DISTRIBUTION WIDTH 13.7 % (11.6-14.8); WHITE BLOOD COUNT 5.3 K/UL (4.8-10.8)
[2018-09-05] MEDS ORDERED: LORazepam Inj 2mg/ml 1ml IV ONE (16:30)
[2018-09-05] MEDS ORDERED: ATIVAN1 MG ORAL (16:47)
[2018-09-05 16:58] VITALS: BP 136/78
[2018-09-05 17:14] LABS: APPEARANCE,URINE CLEAR; BILIRUBIN, URINE NEGATIVE (NEGATIVE); GLUCOSE, URINE (UA) NEGATIVE (NEGATIVE); KETONES,URINE 2+ (NEGATIVE); LEUKOCYTE ESTERASE ,URINE NEGATIVE (NEGATIVE); NITRITE,URINE NEGATIVE (NEGATIVE); PH,URINE 5 (4.5-8.0); PROTEIN,URINE NEGATIVE (NEGATIVE); UROBILINOGEN,URINE NORMAL MG/DL (0.0-1.0)
[2018-09-05 17:17] LABS: COLOR,URINE YELLOW
== END 2018-09-05 17:15 | disposition home or self-care (01) ==
LOC: EMR 14:14
DX: F41.9 Anxiety disorder, unspecified (principal); M62.838 Other muscle spasm; G20 Parkinson's disease
CPT/HCPCS: 36415; 80053; 81003; 83690; 83735; 85025; 96361; 96372; 96374; 96375; 99284; J2270